=== PATIENT | female | born 1930 | race Hispanic/Latino ===

== ENCOUNTER 2018-12-12 09:31 | Emergency (ER) | payer MEDICARE, SELFPAY ==
[2018-12-12] MEDS ORDERED: HYDROcodone/Acetaminophen 5/325 mg Tablet ONE (10:51)
--- NOTE | 2018-12-12 11:41 | RAD ---
Radiograph left wrist 3 views: DATE: 12/12/2018 HISTORY: 87-year-old female with left wrist pain and edema. COMPARISON: None available FINDINGS: No acute fracture is visualized. However, if there is snuffbox tenderness following trauma that sugge sts an occult scaphoid fracture, then the general recommendation is immobilization and follow-up imaging in 5-10 days. There is soft tissue edema. Chondrocalcinosis of the TFCC. Mild ulna plus. Tamie re DJD with chronic subluxation at first CMC. No dislocation. Mild to moderate DJD at STT complex. No high-grade DJD at rest of joints. IMPRESSION: 1. 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 2. 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 3. Ulnar positive variance. 4. No acute fracture identified.
--- NOTE | 2018-12-12 11:54 | ULT ---
VENOUS DOPPLER ULTRASOUND OF THE LEFT UPPER EXTREMITY: HISTORY: Left upper extremity pain. TECHNIQUE: [place]l scale ultrasound with color flow and spectral Doppler imaging of the deep venous system of the l eft upper extremity was performed. FINDINGS: There is good flow, compression, and spectral waveforms in the deep veins of the left upper extremity including the internal jugular, subclavian, axillary, brachial, radial, ulnar, basilic, and visualiz ed portions of the cephalic vein (hepatic vein not visualized in the upper arm). IMPRESSION: No evidence of deep vein thrombosis in the left upper extremity. POS: TPC
== END 2018-12-12 12:18 | disposition home or self-care (01) ==
LOC: ERS 09:31 → EDBD 09:31 → ERS 12:18
DX: M25.532 Pain in left wrist (principal); J44.9 Chronic obstructive pulmonary disease, unspecified; N18.3 Chronic kidney disease, stage 3 (moderate); E11.22 Type 2 diabetes mellitus with diabetic chronic kidney disease; Z79.82 Long term (current) use of aspirin; Z79.899 Other long term (current) drug therapy

== ENCOUNTER 2019-02-08 12:42 | Outpatient (CLI) | payer MEDICARE ==
--- NOTE | 2019-02-08 13:23 | RAD ---
PA AND LATERAL VIEWS CHEST: 02/08/19 HISTORY: Dyspnea. COMPARISON: There are no previous exams for comparison. FINDINGS/IMPRESSION: The heart size is normal. The aorta is tortuous. There is a mild patchy infiltrate in the left lower lung/lingula. No pneumothoraces or pleural effusions are identified. A follow-up exam after a course of antibiotics would be helpful. POS: OFF
== END 2019-02-08 12:43 | disposition home or self-care (01) ==
LOC: RAD 12:42
PROVIDERS: ATTEND Internal Medicine Critical Care Medicine
DX: R06.00 Dyspnea, unspecified (principal); Q25.46 Tortuous aortic arch; R91.8 Other nonspecific abnormal finding of lung field
CPT/HCPCS: 71046

== ENCOUNTER 2019-02-09 07:09 | Outpatient (CLI) | payer MEDICARE ==
--- NOTE | 2019-02-10 08:08 | PFT ---
PATIENT HISTORY: HEIGHT: 62 IN WEIGHT: 112 SMOKER: NO HOW LONG: NEVER PACKS PER DAY:na PRODUCTIVE COUGH: no LUNG DISEASE: no PHYSICIAN INTERPRETATION PFT data: 02/09/19 FEV1 and FVC are with in normal limits. Total lung capacity within normal limits Gas exchange is mildly reduced. IMPRESSION: No evidence of obstruction or restriction. Ther is a mild gas exchange impairment. Tube Puller: VANESSA Capping Machine Operator: VANESSA VILLA
== END 2019-02-09 07:10 | disposition home or self-care (01) ==
LOC: CP 07:09
PROVIDERS: ATTEND Internal Medicine Critical Care Medicine
DX: J84.112 Idiopathic pulmonary fibrosis (principal)
CPT/HCPCS: 94060; 94727; 94729

== ENCOUNTER 2019-02-16 11:02 | Outpatient (CLI) | payer MEDICARE | END 2019-02-16 11:03 | disposition home or self-care (01) | LOC: DTY/OP 11:02 | PROVIDERS: ATTEND Family Medicine | DX: E11.22 Type 2 diabetes mellitus with diabetic chronic kidney disease (principal); N18.3 Chronic kidney disease, stage 3 (moderate) | CPT/HCPCS: 97802 ==

== ENCOUNTER 2019-03-12 14:48 | Inpatient (IN) | payer MEDICARE ==
--- NOTE | 2019-03-12 15:33 | RAD ---
RADIOGRAPH CHEST 1 VIEW: DATE: 03/12/2019 TIME: 3:24 PM HISTORY: 88-year-old female with pneumonia. Follow-up. COMPARISON: 03/08/2019. FINDINGS: Again noted is the patchy infiltrate at the left lateral lower lung zone with partial silhouetting of the cardiac apex. The previous study was a 2 view study with the lateral view showing that this was in the lingula rather than lower lobe. This infiltrate appears improved in certain areas and slig htly more confluent in other areas. No mural infiltrate identified. No cardiomegaly. No pneumothorax. IMPRESSION: Evidence for pneumonia at the lingula of the left upper lobe, with perhaps minimal improvement since 03/08/2019.
[2019-03-12 15:48] LABS: #Eosinphils 0.3 thou/uL (0.0-0.7); #Lymphocytes 1.3 thou/uL (1.20-3.40); #Monocytes 0.4 thou/uL (0.11-0.59); #Neutrophils 2.6 thou/uL (1.40-6.50); %Basophils 0.7 % (0.0-1.0); %Eosinophils 5.9 % (0.0-10.0); %Lymphocytes 28.1 % (21.0-51.0); %Monocytes 8.3 % (0.0-10.0); Hemoglobin 10.6 g/dL (12.0-16.0); Mean Corpuscular Hemoglobin 29.7 pg (27.0-31.0); Mean Corpuscular Volume 87.3 fL (78.0-98.0); Mean Platelet Volume 6.7 fL (7.4-10.4); Platelet Count 230 thou/uL (130-400); Red Blood Cell (RBC) Count 3.57 mill/uL (4.20-5.40); White Blood Cell (WBC) Count 4.5 thou/uL (4.8-10.8)
[2019-03-12 16:07] LABS: ALT (SGPT) 15 U/L (8-55); AST (SGOT) 28 U/L (5-34); Alkaline Phosphatase 77 U/L (40-110); Anion Gap 13 mmol/L (10-20); BUN (Urea Nitrogen) 36 mg/dL (9.8-20.1); Bilirubin, Total 0.5 mg/dL (0.2-1.2); Calc. Creatinine Clearance 0 mL/min (70-130); Calcium 9.1 mg/dL (7.8-10.44); Carbon Dioxide 23 mmol/L (23-31); Chloride 105 mmol/L (98-107); Estimated GFR-MDRD 36; Globulin 3.7 g/dL (2.4-3.5); Glucose 109 mg/dL (83-110); Potassium 3.7 mmol/L (3.5-5.1); Protein, Total 7.7 g/dL (6.0-8.3); Sodium 137 mmol/L (136-145)
[2019-03-12] MEDS ORDERED: cefTRIAXone\\ROCEPHIN 2 GM VIAL ONE (16:44)
[2019-03-12] MEDS ORDERED: Azithromycin 500 MG VIAL ONE (17:20)
[2019-03-12 17:57] LABS: Bacteria/HPF 1+ HPF (None Seen); Bilirubin Negative (Negative); Blood, Urine Negative (Negative); Clarity Clear (Clear); Glucose, Urine (Dipstick) Normal (Negative); Leukocyte 75 Leu/uL (Negative); Nitrite Negative (Negative); Protein, Urine (Dipstick) Negative (Neg-Trace); RBC/HPF None Seen HPF (0-3); Squamous Epithelial 0-3 HPF (0-3); Urobilinogen Normal mg/dL (Less than 2)
--- NOTE | 2019-03-12 17:57 | PDOC.FPRHP ---
- History of Present Illness Chief Complaint: Weakness History of Present Illness: 88 yo female presents with daughter for evaluation of worsening generalized weakness. Daughter states for the past week pt has been getting more weak needing assistance with ambulation - normally is very independent. Pt lives w/ daughter. 2 days ago dx with pna at [facility] and received 2 shots of abx and no oral abx. Condition has continued to worsen since then prompting further evaluation today. Pt notes mild SOB and cough productive of white foamy sputum, subjective fever, and chills. Pt had pna previously but states it was many many years ago and does not have breathing problems at baseline. Never smoked. Initial eval in ED confirmed pna. Started on azithro and rocephin. Eval in ED for direct transfer to in rehab which family and pt was agreeable to however needed admission overnight prior to transfer. ED Course: IV rocephin and azitho. CXR confirming PNA. - Allergies/Adverse Reactions Allergies Allergy/AdvReac Type Severity Reaction Status Date / Time Penicillins Allergy Verified 03/12/19 19:35 - History PMHx: GERD, osteoporosis, hypothyroidism, HTN, CAD, DM II, CKD3 PSHx: Appy, holley, cervical spine surgery FHx: non contributory Social: Denies any tobacco, alcohol, or drug use - Review of Systems General: reports: fever/chills, weight/appetite/sleep changes (decreased appetite), fatigue Eyes: denies: vision changes ENT: denies: nasal congestion, rhinorrhea Respiratory: reports: cough, shortness of breath. denies: congestion Cardiovascular: denies: chest pain, palpitation Gastrointestinal: denies: nausea, vomiting, diarrhea, constipation Genitourinary: denies: incontinence, dysuria Skin: denies: rashes, lesions Musculoskeletal: denies: pain, tenderness Neurological: reports: weakness (generalized). denies: numbness Psychological: denies: anxiety, depression - Vital signs BP: 102/65, Pulse: 60, Resp: 17, Temp: 98.2 (Oral), Pain: 4, O2 sat: 97 on Room Air - Physical Exam Constitutional: NAD, awake, alert and oriented HEENT: normocephalic and atraumatic, MMM Neck: FROM, no JVD Heart: RRR, normal S1/S2 Lungs: no respiratory distress -Lungs: Crackles left middle and lower lobe Abdomen: soft, non-tender Musculoskeletal: normal structure, normal tone Neurological: no focal deficit, CN II-XII intact Skin: no rash/lesions, good turgor Psychiatric: normal mood and affect, good judgment and insight FMR H&P: Results - Labs Result Diagrams: 03/12/19 15:37 03/12/19 15:37 Lab results: WBC 4.5 thou/uL (4.8-10.8) L 03/12/19 15:37 Hgb 10.6 g/dL (12.0-16.0) L 03/12/19 15:37 Hct 31.1 % (36.0-47.0) L 03/12/19 15:37 MCV 87.3 fL (78.0-98.0) 03/12/19 15:37 Plt Count 230 thou/uL (130-400) 03/12/19 15:37 Neutrophils % 57.0 % (42.0-75.0) 03/12/19 15:37 Sodium 137 mmol/L (136-145) 03/12/19 15:37 Potassium 3.7 mmol/L (3.5-5.1) 03/12/19 15:37 Chloride 105 mmol/L (98-107) 03/12/19 15:37 Carbon Dioxide 23 mmol/L (23-31) 03/12/19 15:37 BUN 36 mg/dL (9.8-20.1) H 03/12/19 15:37 Creatinine 1.37 mg/dL (0.6-1.1) H 03/12/19 15:37 Glucose 109 mg/dL (83-110) 03/12/19 15:37 Lactic Acid 0.9 mmol/L (0.5-2.2) 03/12/19 15:37 Calcium 9.1 mg/dL (7.8-10.44) 03/12/19 15:37 Total Bilirubin 0.5 mg/dL (0.2-1.2) 03/12/19 15:37 AST 28 U/L (5-34) 03/12/19 15:37 ALT 15 U/L (8-55) 03/12/19 15:37 Alkaline Phosphatase 77 U/L (40-110) 03/12/19 15:37 Serum Total Protein 7.7 g/dL (6.0-8.3) 03/12/19 15:37 Albumin 4.0 g/dL (3.4-4.8) 03/12/19 15:37 - Radiology Interpretation Chest x-ray Status: report reviewed by me (left upper lobe PNA) FMR H&P: A/P - Problem List (1) Pneumonia Current Visit: Yes Status: Acute Code(s): J18.9 - PNEUMONIA, UNSPECIFIED ORGANISM (2) Diabetes mellitus, type II Current Visit: Yes Status: Acute (3) HTN (hypertension) Current Visit: Yes Status: Acute Code(s): I10 - ESSENTIAL (PRIMARY) HYPERTENSION (4) HLD (hyperlipidemia) Current Visit: Yes Status: Acute Code(s): E78.5 - HYPERLIPIDEMIA, UNSPECIFIED (5) Hypothyroid Current Visit: Yes Status: Acute Code(s): E03.9 - HYPOTHYROIDISM, UNSPECIFIED (6) CKD (chronic kidney disease) stage 3, GFR 30-59 ml/min Current Visit: Yes Status: Acute Code(s): N18.3 - CHRONIC KIDNEY DISEASE, STAGE 3 (MODERATE) - Plan Community Acquired PNA - Azithro and Rocephin in ED, will continue - Stable vitals on RA - Failed outpt tx 2/2 weakness - Inpt Rehab screen = approved - Continue to monitor resp status, supplemental O2 as needed - Procal trending DM II - Resume home Rx once rec'd - Mild SSI - Hypoglycemia protocol CKD 3 - Continue to monitor HTN, HLD, Hypothyroid - Resume home Rx once rec'd Code: Full Dispo: Admit obs overnight for abx and monitoring w/ likely dc to inpt rehab tomorrow. FMR H&P: Upper Level - Plan Date/Time: 03/12/19 [id number] IRayshawn DO, have evaluated this patient and agree with findings/plan as outlined by internal audit consultant resident. Pertinent changes/additions are listed here. This is an 88 yo female with a pmh of HTN, DM2, CKD 3, hypothyroidism, CAD who presets to the ER with a 6 day history of subjective fever, worsening weakness, cough, and SOB. She state the cough has been productive. She denies sick contacts. She was seen at outside urgent care but was only giving IM antibiotics with no oral outpt abx therapy. Her daughter is with her tonight and states that she is concernd that her grandmother will fall or pass out at home. Physical exam VSS General: NAD Cardio: RRR, no murmurs Respiratory: Crackles heard worse on the left Abdomen: soft, BS+ A/P CAP -Admit to medical obs, rocephin and azithromycin -Flu negative -CURB-65 Score suggests 14% 30 day mortality CKD 3 -No labs to compare to Normocytic anemia -Potentially that of chronic disease, consider outpt work up Deconditioning, likely 2/2 pneumonia -Attempt admission to inpt rehab from ER, however pt's insurance would not allow for this on the weekend, will try in the morning Code: Full Please see internal audit consultant note for management of chronic conditions and for more information. Addendum - Attending - Attending Attestation Date/Time: 03/12/19 1015 I personally evaluated the patient and discussed the management with Dr. Morel I agree with the History, Examination, Assessment and Plan documented above with any addition or exceptions noted below -88 yo female with h/o hypothyroidism, HTN, type 2 DM, GERD, CKD presents with worsening generalized weakness. Daughter states for the past week pt has been getting more weak needing assistance with ambulation - normally is very independent. Pt lives w/ daughter. 2 days ago dx with pna at [facility] and received 2 shots of abx and no oral abx. Condition has continued to worsen since then prompting further evaluation today. Pt notes mild SOB and cough productive of white foamy sputum, subjective fever, and chills. Patient does endorse recent weight loss due to poor appetite. States that it feels like food/solids get stuck in middle of her chest and she has to drink water to try and push it down. States that she has occasional nausea but no vomiting. (+) Heartburn. No problems swallowing liquids. PMH/PSH/Meds/SH reviewed and agree with resident's documentation. Afebilre P61 BP 114/60 RR18 Exam repeated by me and agree with resident's findings. Labs: WBC=4.5, H/H=10.6/31.1, Ocs=275, Ow=763, K=3.7, Sv=445, CO2=23, BUN/Cr=36/1.37, Tzqa=502, lactic acid=0.9, flu-negative. CXR- lingular infiltrate. A/P: 1) Pneumonia - on chart review - infiltrate seen on x-ray in January when she was being evaluated for surgery clearance; possible atypical pathogen versus possible aspiration due to dysphagia. Continue abx for now. 2) Dysphagia- suspect possible esophageal stricture versus gastroparesis- consider barium/gastrograffin swallow or GI consult. 3) Weakness- PT/OT consulted. plan for rehab placement upon discharge, 4) DM- monitor accuchecks and adjust meds as indicated.
[2019-03-12] MEDS ORDERED: Acetaminophen 325 MG TAB PO PRN (19:05)
[2019-03-12] MEDS ORDERED: Ondansetron PF 4 MG/2 ML Vial IVP PRN (19:05)
[2019-03-12] MEDS ORDERED: Ondansetron ODT 4 MG TAB SL PRN (19:05)
[2019-03-12] MEDS ORDERED: Dextrose 5% in Water 1,000 ML IV PRN (19:32)
[2019-03-12] MEDS ORDERED: Dextrose 50% Abboject 50 ML SYRINGE SLOW IVP PRN (19:32)
[2019-03-12] MEDS ORDERED: HumaLOG 300 UNITS/3 ML VIAL SC PRN ×2 (19:32)
[2019-03-12 20:27] VITALS: BMI 21.4
[2019-03-13] MEDS: Melatonin 3 MG TAB PO PRN (01:32)
[2019-03-13 05:53] LABS: #Eosinphils 0.3 thou/uL (0.0-0.7); #Lymphocytes 1.4 thou/uL (1.20-3.40); #Monocytes 0.4 thou/uL (0.11-0.59); #Neutrophils 2.2 thou/uL (1.40-6.50); %Basophils 0.4 % (0.0-1.0); %Eosinophils 6.9 % (0.0-10.0); %Lymphocytes 31.8 % (21.0-51.0); %Monocytes 9.1 % (0.0-10.0); %Neutrophils 51.8 % (42.0-75.0); Hemoglobin 9.1 g/dL (12.0-16.0); Mean Corpuscular HGB CONC 33.2 g/dL (32.0-36.0); Mean Corpuscular Hemoglobin 28.9 pg (27.0-31.0); Mean Corpuscular Volume 87.2 fL (78.0-98.0); Mean Platelet Volume 6.9 fL (7.4-10.4); Platelet Count 215 thou/uL (130-400); Red Blood Cell (RBC) Count 3.13 mill/uL (4.20-5.40); White Blood Cell (WBC) Count 4.3 thou/uL (4.8-10.8)
[2019-03-13 06:28] LABS: Anion Gap 12 mmol/L (10-20); BUN (Urea Nitrogen) 34 mg/dL (9.8-20.1); Calc. Creatinine Clearance 25 mL/min (70-130); Calcium 8.6 mg/dL (7.8-10.44); Carbon Dioxide 23 mmol/L (23-31); Chloride 106 mmol/L (98-107); Estimated GFR-MDRD 38; Glucose 90 mg/dL (83-110); Sodium 137 mmol/L (136-145)
--- NOTE | 2019-03-13 06:33 | PDOC.FM ---
- Subjective Subjective: Patient continues to complain of cough with "foamy" sputum production, says this has been ongoing for about 1 week. Also has some associated chest tightness in center of chest during same time period, worsens when she tries to take a deep breath. Patient was seen by inpatient rehab and screened in ED last night with preliminary acceptance. - Objective Vital Signs & Weight: Vital Signs (12 hours) Temp Pulse Resp BP BP Pulse Ox 03/13/19 04:00 97.9 F 60 16 114/58 L 97 03/13/19 00:00 98.2 F 66 16 122/62 98 03/12/19 19:05 97.7 F 61 18 114/60 114/60 99 Weight Weight 53.212 kg I&O: 03/11/19 03/12/19 03/13/19 06:59 06:59 06:59 Intake Total 610 Balance 610 Result Diagrams: 03/13/19 05:26 03/13/19 05:26 Phys Exam - Physical Examination Constitutional: NAD HEENT: moist MMs, sclera anicteric Neck: no JVD, supple, full ROM Respiratory: no wheezing, no rales, no rhonchi, clear to auscultation bilateral decreased breath sounds in bilateral bases Cardiovascular: RRR, no significant murmur Gastrointestinal: soft, non-tender, no distention, positive bowel sounds Musculoskeletal: no edema, pulses present Neurological: normal sensation, moves all 4 limbs Psychiatric: normal affect, A&O x 3 Skin: no rash, normal turgor Dx/Plan (1) CKD (chronic kidney disease) stage 3, GFR 30-59 ml/min Code(s): N18.3 - CHRONIC KIDNEY DISEASE, STAGE 3 (MODERATE) Status: Acute (2) Diabetes mellitus, type II Status: Acute Qualifiers: Diabetes mellitus wire stitcher machine insulin use: without shelter use Diabetes mellitus complication status: without complication Qualified Code(s): E11.9 - Type 2 diabetes mellitus without complications (3) HTN (hypertension) Code(s): I10 - ESSENTIAL (PRIMARY) HYPERTENSION Status: Acute Qualifiers: Hypertension type: essential hypertension Qualified Code(s): I10 - Essential (primary) hypertension (4) Pneumonia Code(s): J18.9 - PNEUMONIA, UNSPECIFIED ORGANISM Status: Acute Qualifiers: Pneumonia type: due to unspecified organism Laterality: unspecified laterality Lung location: unspecified part of lung Qualified Code(s): J18.9 - Pneumonia, unspecified organism - Plan Plan: Patient is a 88 yo female who presents with congestion is admitted for community -acquired pneumonia: #Community Acquired PNA - CXR on 03/12/19 shows pneumonia at lingula of left lower lobe, minimal change when compared to CXR on 03/08/19 - Azithro and Rocephin started in ED (03/12), will continue - Stable vitals on RA - Failed outpt tx 2/2 weakness - Inpt Rehab screen performed in ED with preliminary approval received 03/12. Will need 1 overnight stay. - Continue to monitor resp status, supplemental O2 as needed - Procal trending - concern for aspiration due to hx of difficulty swallowing, will obtain barium swallow and speech eval today #DM II - Resume home Rx once rec'd - Mild SSI - Hypoglycemia protocol #CKD 3 - Continue to monitor #HTN, HLD, Hypothyroid - Resume home Rx once rec'd Diet: Regular VTE: SCDs Code: FULL Dispo: Stable, Admit to obs on medical unit overnight for antibiotics and monitoring with likely discharge to inpt rehab later today or tomorrow. Addendum - Attending - Attending Attestation Date/Time: 03/13/19 1441 I personally evaluated the patient and discussed the management with Dr. Harvey I agree with the History, Examination, Assessment and Plan documented above with any addition or exceptions noted below. Patient to undergo further dysphagia work up concern with possible repeated aspiration.
[2019-03-13] MEDS: Aspirin 81 mg Enteric Coated Tablet PO SCH (08:44)
[2019-03-13] MEDS: Azithromycin 250 MG TAB PO SCH (08:44)
[2019-03-13] MEDS: Montelukast Sodium 10 mg Tablet PO SCH (08:45)
[2019-03-13] MEDS: Cyanocobalamin (Vitamin B-12) 1,000 MCG TAB PO SCH (08:45)
[2019-03-13] MEDS: Folic Acid 1 MG TAB PO SCH (08:45)
[2019-03-13] MEDS: cefTRIAXone\\ROCEPHIN 2 GM in Sodium Chloride 0.9% 100 ML IVPB SCH (17:16)
[2019-03-14 06:28] LABS: #Eosinphils 0.4 thou/uL (0.0-0.7); #Lymphocytes 1.2 thou/uL (1.20-3.40); #Monocytes 0.5 thou/uL (0.11-0.59); #Neutrophils 2.6 thou/uL (1.40-6.50); %Basophils 0.8 % (0.0-1.0); %Eosinophils 7.6 % (0.0-10.0); %Lymphocytes 25.5 % (21.0-51.0); %Monocytes 9.9 % (0.0-10.0); %Neutrophils 56.2 % (42.0-75.0); Hemoglobin 10.1 g/dL (12.0-16.0); Mean Corpuscular HGB CONC 33.4 g/dL (32.0-36.0); Mean Corpuscular Hemoglobin 29.2 pg (27.0-31.0); Mean Corpuscular Volume 87.3 fL (78.0-98.0); Mean Platelet Volume 7.3 fL (7.4-10.4); Platelet Count 182 thou/uL (130-400); RBC Distribution Width 12.9 % (11.5-14.5); Red Blood Cell (RBC) Count 3.47 mill/uL (4.20-5.40); White Blood Cell (WBC) Count 4.7 thou/uL (4.8-10.8)
--- NOTE | 2019-03-14 06:30 | PDOC.FM ---
- Subjective Subjective: Patient continues to complain of cough with minimal foamy sputum production. Does have some SOB whenever she speaks for extended periods of time or when she is up and walking around. Denies chest pain, palpitations, dizziness, lightheadedness, headache. - Objective Vital Signs & Weight: Vital Signs (12 hours) Temp Pulse Resp BP Pulse Ox 03/14/19 00:27 56 L 18 99 03/13/19 20:41 98 03/13/19 20:00 98.1 F 60 20 161/67 H 98 Weight Admit Weight 53.212 kg Weight 53.212 kg I&O: 03/12/19 03/13/19 03/14/19 06:59 06:59 06:59 Intake Total 610 1680 Balance 610 1680 Result Diagrams: 03/14/19 06:01 03/14/19 06:01 Phys Exam - Physical Examination Constitutional: NAD HEENT: moist MMs, sclera anicteric Neck: no JVD, supple, full ROM Respiratory: no wheezing, no rhonchi, clear to auscultation bilateral decreased air excursion to bilateral bases Cardiovascular: RRR, no significant murmur Gastrointestinal: soft, non-tender, no distention, positive bowel sounds Musculoskeletal: no edema, pulses present Neurological: normal sensation, moves all 4 limbs Psychiatric: normal affect, A&O x 3 Skin: no rash, normal turgor Dx/Plan (1) CKD (chronic kidney disease) stage 3, GFR 30-59 ml/min Code(s): N18.3 - CHRONIC KIDNEY DISEASE, STAGE 3 (MODERATE) Status: Acute (2) Diabetes mellitus, type II Status: Acute Qualifiers: Diabetes mellitus intermodal truck driver insulin use: without intermodal truck driver use Diabetes mellitus complication status: without complication Qualified Code(s): E11.9 - Type 2 diabetes mellitus without complications (3) HTN (hypertension) Code(s): I10 - ESSENTIAL (PRIMARY) HYPERTENSION Status: Acute Qualifiers: Hypertension type: essential hypertension Qualified Code(s): I10 - Essential (primary) hypertension (4) Pneumonia Code(s): J18.9 - PNEUMONIA, UNSPECIFIED ORGANISM Status: Acute Qualifiers: Pneumonia type: due to unspecified organism Laterality: unspecified laterality Lung location: unspecified part of lung Qualified Code(s): J18.9 - Pneumonia, unspecified organism - Plan Plan: Patient is a 88 yo female who presents with congestion is admitted for community -acquired pneumonia: #Community Acquired PNA - CXR on 03/12/19 shows pneumonia at lingula of left lower lobe, minimal change when compared to CXR on 03/08/19 - Azithro and Rocephin started in ED (03/12), will continue - Stable vitals on RA, was noted when working with speech pathologist to have O2 sat drop to 84%, quickly recovered with rest with O2 sat back up to 100% - Failed outpt tx 2/2 weakness - Inpt Rehab screen performed in ED with preliminary approval received 03/12. Will need 1 overnight stay. - Continue to monitor resp status, supplemental O2 as needed - Procal 0.02 - concern for aspiration due to hx of difficulty swallowing, will obtain barium swallow with further speech eval today #DM II - Resume home Rx - Mild SSI - Hypoglycemia protocol #CKD 3 - Continue to monitor #HTN, HLD, Hypothyroid - Resume home Rx Diet: Mechanical soft per KILN DRAWER recs VTE: SCDs Code: FULL Dispo: Stable, Admit to inpatient on medical unit for antibiotics and further workup for aspiration with barium swallow today. Anticipate discharge in 1-3 days to inpatient rehab. Addendum - Attending - Attending Attestation Date/Time: 03/14/19 7538 I personally evaluated the patient and discussed the management with Dr. Harvey I agree with the History, Examination, Assessment and Plan documented above with any addition or exceptions noted below. Barium swallow study this am may need further GI evaluation pending results will modify diet prn.
[2019-03-14 06:49] LABS: Anion Gap 12 mmol/L (10-20); BUN (Urea Nitrogen) 27 mg/dL (9.8-20.1); Calc. Creatinine Clearance 29 mL/min (70-130); Carbon Dioxide 23 mmol/L (23-31); Chloride 106 mmol/L (98-107); Estimated GFR-MDRD 46; Glucose 98 mg/dL (83-110); Potassium 4.1 mmol/L (3.5-5.1); Sodium 137 mmol/L (136-145)
[2019-03-14] MEDS ORDERED: Non-Formulary Item 1 EACH (Ranitidine Hcl [Ranitidine Hcl] 300 MG) PO SCH (09:00)
[2019-03-14] MEDS ORDERED: Non-Formulary Item 1 EACH (Amlodipine Besylate [Amlodipine Besylate] 2.5 MG) PO SCH (09:00)
[2019-03-14] MEDS ORDERED: Losartan/Hydrochlorothiazide 100 mg/25 mg Tablet PO SCH (09:00)
[2019-03-14] MEDS: Senokot S 8.6-50 MG TAB PO SCH (09:48)
[2019-03-14] MEDS: Isosorbide Mononitrate (ER) 30 MG TAB PO SCH (09:48)
[2019-03-14] MEDS: Aspirin 81 mg Enteric Coated Tablet PO SCH (09:48)
[2019-03-14] MEDS: Amlodipine 5 MG TAB PO SCH (09:49)
[2019-03-14] MEDS: Montelukast Sodium 10 mg Tablet PO SCH (09:49)
[2019-03-14] MEDS: Famotidine 20 MG TAB PO SCH (09:49)
[2019-03-14] MEDS: Azithromycin 250 MG TAB PO SCH (09:49)
[2019-03-14] MEDS: Cyanocobalamin (Vitamin B-12) 1,000 MCG TAB PO SCH (09:49)
[2019-03-14] MEDS: Folic Acid 1 MG TAB PO SCH (09:49)
[2019-03-14] MEDS: Losartan/Hydrochlorothiazide 100 mg/25 mg Tablet PO SCH (09:51)
--- NOTE | 2019-03-14 14:05 | RAD ---
Modified barium swallow: 03/14/2019 HISTORY: Evaluate for aspiration, dysphagia, burping FINDINGS: A modified barium swallow is performed in conjunction with a member to the division of spee ch pathology. The patient's imaged in the lateral projection swallowing various consistencies of barium. There is mild residual within the vallecula, particularly with the pudding consistency. No pe netration or aspiration was seen. IMPRESSION: No penetration or aspiration seen. Please see speech pathologist report for full detail a nd feeding recommendations.
[2019-03-14] MEDS: cefTRIAXone\\ROCEPHIN 2 GM in Sodium Chloride 0.9% 100 ML IVPB SCH (17:04)
[2019-03-14] MEDS: Melatonin 3 MG TAB PO PRN (22:40)
--- NOTE | 2019-03-15 05:44 | PDOC.FM ---
- Subjective Subjective: Patient had a barium swallow study completed yesterday. Speech reports she needs to continue with modified diet. Patient states she already avoids eating large bites of foods since having ongoing choking sensation. Voices that she is scared to eat alone for fear she will choke on her food, has had history of having Heimlich maneuver performed on her a few times by family members. This morning patient complains of continued cough. Denies any pain. States that about 1-2 hours after meals she feels nauseous and feels like she has fullness near her epigastric region. Has taken Zantac in the past which relieves these symptoms but has not received it during this stay. - Objective Vital Signs & Weight: Vital Signs (12 hours) Temp Pulse Resp BP Pulse Ox 03/14/19 20:00 97.9 F 61 16 128/57 L 98 Weight Admit Weight 53.212 kg Weight 53.212 kg I&O: 03/13/19 03/14/19 03/15/19 06:59 06:59 06:59 Intake Total 610 1680 1690 Balance 610 1680 1690 Result Diagrams: 03/15/19 06:37 03/15/19 06:37 Phys Exam - Physical Examination Constitutional: NAD HEENT: moist MMs, sclera anicteric Neck: no JVD, supple, full ROM Respiratory: no wheezing, no rales, no rhonchi, clear to auscultation bilateral Cardiovascular: RRR, no significant murmur Gastrointestinal: soft, non-tender, no distention, positive bowel sounds Musculoskeletal: no edema, pulses present Neurological: normal sensation, moves all 4 limbs Psychiatric: normal affect, A&O x 3 Skin: no rash, normal turgor Dx/Plan (1) CKD (chronic kidney disease) stage 3, GFR 30-59 ml/min Code(s): N18.3 - CHRONIC KIDNEY DISEASE, STAGE 3 (MODERATE) Status: Acute (2) Diabetes mellitus, type II Status: Acute Qualifiers: Diabetes mellitus shelter insulin use: without shelter use Diabetes mellitus complication status: without complication Qualified Code(s): E11.9 - Type 2 diabetes mellitus without complications (3) HTN (hypertension) Code(s): I10 - ESSENTIAL (PRIMARY) HYPERTENSION Status: Acute Qualifiers: Hypertension type: essential hypertension Qualified Code(s): I10 - Essential (primary) hypertension (4) Pneumonia Code(s): J18.9 - PNEUMONIA, UNSPECIFIED ORGANISM Status: Acute Qualifiers: Pneumonia type: due to unspecified organism Laterality: unspecified laterality Lung location: unspecified part of lung Qualified Code(s): J18.9 - Pneumonia, unspecified organism - Plan Plan: Patient is a 88 yo female who presents with congestion is admitted for community -acquired pneumonia: #Community Acquired PNA - CXR on 03/12/19 shows pneumonia at lingula of left lower lobe, minimal change when compared to CXR on 03/08/19 - Azithro and Rocephin started in ED (03/12), will continue - Stable vitals on RA, was noted when working with speech pathologist to have O2 sat drop to 84%, quickly recovered with rest with O2 sat back up to 100% - Failed outpt tx 2/2 weakness - Inpt Rehab screen performed in ED with preliminary approval received 03/12. - Continue to monitor resp status, supplemental O2 as needed - Procal 0.02 - concern for aspiration due to hx of difficulty swallowing -Modified barium swallow with further speech eval on 03/14 showed no penetration or aspiration, there was mild oral dysphagia and mild to moderate pharyngeal dysphagia. ROAD SUPERVISOR recommends continued speech therapy and modified diet. See ROAD SUPERVISOR report for additional information. -Rest of barium swallow study of distal esophagus is still pending but verbal report did not see any signs of aspiration, small hiatal hernia present, otherwise normal study - Continue Physical Therapy #DM II - Resume home Rx - Mild SSI - Hypoglycemia protocol #CKD 3 - Continue to monitor #HTN, HLD, Hypothyroid - Resume home Rx Diet: Mechanical soft per ROAD SUPERVISOR recs VTE: SCDs Code: FULL Dispo: Stable, Admit to inpatient on medical unit for antibiotics, transition to PO today. Anticipate discharge in 1-2 days to inpatient rehab. Addendum - Attending - Attending Attestation Date/Time: 03/15/19 0239 I personally evaluated the patient and discussed the management with Dr. Harvey I agree with the History, Examination, Assessment and Plan documented above with any addition or exceptions noted below. Patient stable for transition to rehab for continued swallow therapy and conditioning transition to po antibiotic azithromycin to complete course.
[2019-03-15 07:29] LABS: #Eosinphils 0.4 thou/uL (0.0-0.7); #Lymphocytes 1.3 thou/uL (1.20-3.40); #Monocytes 0.5 thou/uL (0.11-0.59); #Neutrophils 2.1 thou/uL (1.40-6.50); %Basophils 0.2 % (0.0-1.0); %Eosinophils 8.5 % (0.0-10.0); %Lymphocytes 31.6 % (21.0-51.0); %Monocytes 10.9 % (0.0-10.0); %Neutrophils 48.8 % (42.0-75.0); Hemoglobin 9.5 g/dL (12.0-16.0); Mean Corpuscular HGB CONC 33.9 g/dL (32.0-36.0); Mean Corpuscular Hemoglobin 29.6 pg (27.0-31.0); Mean Corpuscular Volume 87.3 fL (78.0-98.0); Mean Platelet Volume 7.3 fL (7.4-10.4); Platelet Count 200 thou/uL (130-400); RBC Distribution Width 12.8 % (11.5-14.5); White Blood Cell (WBC) Count 4.2 thou/uL (4.8-10.8)
[2019-03-15 07:52] LABS: Anion Gap 13 mmol/L (10-20); BUN (Urea Nitrogen) 28 mg/dL (9.8-20.1); Calc. Creatinine Clearance 27 mL/min (70-130); Calcium 8.6 mg/dL (7.8-10.44); Carbon Dioxide 24 mmol/L (23-31); Chloride 104 mmol/L (98-107); Estimated GFR-MDRD 42; Glucose 104 mg/dL (83-110); Potassium 3.6 mmol/L (3.5-5.1); Sodium 137 mmol/L (136-145)
[2019-03-15] MEDS: Aspirin 81 mg Enteric Coated Tablet PO SCH (08:58)
[2019-03-15] MEDS: Isosorbide Mononitrate (ER) 30 MG TAB PO SCH (08:58)
[2019-03-15] MEDS: Montelukast Sodium 10 mg Tablet PO SCH (08:58)
[2019-03-15] MEDS: Amlodipine 5 MG TAB PO SCH (08:58)
[2019-03-15] MEDS: Azithromycin 250 MG TAB PO SCH (08:58)
[2019-03-15] MEDS: Losartan/Hydrochlorothiazide 100 mg/25 mg Tablet PO SCH (08:59)
[2019-03-15] MEDS: Cyanocobalamin (Vitamin B-12) 1,000 MCG TAB PO SCH (08:59)
[2019-03-15] MEDS: Famotidine 20 MG TAB PO SCH (08:59)
[2019-03-15] MEDS: Folic Acid 1 MG TAB PO SCH (08:59)
[2019-03-15] MEDS: Senokot S 8.6-50 MG TAB PO SCH (08:59)
--- NOTE | 2019-03-15 10:18 | RAD ---
BARIUM SWALLOW: 03/14/2019 HISTORY: Dysphagia. Choking. FINDINGS: Advertising Production Manager radiograph chest demonstrates increased linear interstitial density and pulmonary hyperinflatio n. There is atherosclerotic calcification of the aortic arch. There is a focal opacity in the inferol ateral aspect of the left lower lobe/left lung base, suggesting infectious pneumonitis/aspiration. Double contrast barium esophagram performed. Peristalsis appears normal. Esophageal contour is within normal limits. Small sliding type hiatal hernia noted. No gastroesophageal reflux was elicited durin g this examination. The patient ingested a barium tablet which traverses the gastroesophageal junctio n without delay. IMPRESSION: Focal opacity in the inferolateral left lung base suggests infectious pneumonitis/aspiration. Barium esophagram demonstrates a small hiatal hernia with no gastroesophageal reflux, mass or stricture seen . POS: [facility]
--- NOTE | 2019-03-16 05:52 | PDOC.FM ---
- Subjective Subjective: Patient states that she is feeling better this morning. Still has cough, minimal sputum production. Denies chest pain, back pain, difficulty breathing, SOB. Patient's home health services were set up yesterday afternoon/evening for patient to be able to continue speech therapy and physical therapy at home. - Objective Vital Signs & Weight: Vital Signs (12 hours) Temp Pulse Resp BP Pulse Ox 03/15/19 20:00 97.8 F 61 18 123/66 96 03/15/19 19:49 96 Weight Admit Weight 53.212 kg Weight 53.212 kg I&O: 03/14/19 03/15/19 03/16/19 06:59 06:59 06:59 Intake Total 1680 2410 1050 Balance 1680 2410 1050 Result Diagrams: 03/16/19 06:11 03/16/19 06:11 Phys Exam - Physical Examination Constitutional: NAD HEENT: moist MMs, sclera anicteric Neck: no JVD, supple, full ROM Respiratory: no wheezing, no rales, no rhonchi, clear to auscultation bilateral Cardiovascular: RRR, no significant murmur Gastrointestinal: soft, non-tender, no distention, positive bowel sounds Musculoskeletal: no edema, pulses present Neurological: non-focal, normal sensation, moves all 4 limbs Psychiatric: normal affect, A&O x 3 Skin: no rash, normal turgor Dx/Plan (1) CKD (chronic kidney disease) stage 3, GFR 30-59 ml/min Code(s): N18.3 - CHRONIC KIDNEY DISEASE, STAGE 3 (MODERATE) Status: Acute (2) Diabetes mellitus, type II Status: Acute Qualifiers: Diabetes mellitus buttermaker helper insulin use: without correction use Diabetes mellitus complication status: without complication Qualified Code(s): E11.9 - Type 2 diabetes mellitus without complications (3) HTN (hypertension) Code(s): I10 - ESSENTIAL (PRIMARY) HYPERTENSION Status: Acute Qualifiers: Hypertension type: essential hypertension Qualified Code(s): I10 - Essential (primary) hypertension (4) Pneumonia Code(s): J18.9 - PNEUMONIA, UNSPECIFIED ORGANISM Status: Acute Qualifiers: Pneumonia type: due to unspecified organism Laterality: unspecified laterality Lung location: unspecified part of lung Qualified Code(s): J18.9 - Pneumonia, unspecified organism - Plan Plan: Patient is a 88 yo female who presents with congestion is admitted for community -acquired pneumonia: #Community Acquired PNA - CXR on 03/12/19 shows pneumonia at lingula of left lower lobe, minimal change when compared to CXR on 03/08/19 - Azithro and Rocephin started in ED (03/12), Rocephin continued and then stopped on 03/15, Azithro continued with last dose today (03/16) - Stable vitals on RA, was noted when working with speech pathologist to have O2 sat drop to 84%, quickly recovered with rest with O2 sat back up to 100% - Failed outpt tx 2/2 weakness - Inpt Rehab screen performed in ED with preliminary approval received 03/12 but her insurance ultimately denied - Continue to monitor resp status, supplemental O2 as needed - Procal 0.02 - concern for aspiration due to hx of difficulty swallowing -Modified barium swallow with further speech eval on 03/14 showed no penetration or aspiration, there was mild oral dysphagia and mild to moderate pharyngeal dysphagia. SECOND HELPER recommends continued speech therapy and modified diet. See SECOND HELPER report for additional information. -Rest of barium swallow study of distal esophagus is still pending but verbal report did not see any signs of aspiration, small hiatal hernia present, otherwise normal study - Continue Physical Therapy - Consult Case Management to arrange for Home Health services for Physical therapy and Speech therapy--arranged for [facility] to start seeing patient today - will send Tessalon Rx for cough #DM II - Resume home Rx - Mild SSI - Hypoglycemia protocol #CKD 3 - Continue to monitor #HTN, HLD, Hypothyroid - Resume home Rx Diet: Mechanical soft per SECOND HELPER recs VTE: SCDs Code: FULL Dispo: Stable, Admit to inpatient on medical unit for antibiotics. Anticipate discharge today to home with home health services. Will instruct to have close follow up with Dr. Terese Goldsmith at [facility]. Addendum - Attending - Attending Attestation Date/Time: 03/16/19 [id number] I personally evaluated the patient and discussed the management with Dr. Harvey I agree with the History, Examination, Assessment and Plan documented above with any addition or exceptions noted below.
[2019-03-16 06:29] LABS: #Eosinphils 0.4 thou/uL (0.0-0.7); #Lymphocytes 1.4 thou/uL (1.20-3.40); #Monocytes 0.4 thou/uL (0.11-0.59); #Neutrophils 1.8 thou/uL (1.40-6.50); %Basophils 0.9 % (0.0-1.0); %Eosinophils 9.4 % (0.0-10.0); %Lymphocytes 34.9 % (21.0-51.0); %Monocytes 10.3 % (0.0-10.0); %Neutrophils 44.5 % (42.0-75.0); Hemoglobin 9.7 g/dL (12.0-16.0); Mean Corpuscular Hemoglobin 29.6 pg (27.0-31.0); Mean Corpuscular Volume 87.2 fL (78.0-98.0); Mean Platelet Volume 7.2 fL (7.4-10.4); Platelet Count 197 thou/uL (130-400); Red Blood Cell (RBC) Count 3.27 mill/uL (4.20-5.40); White Blood Cell (WBC) Count 4.1 thou/uL (4.8-10.8)
[2019-03-16 06:51] LABS: Anion Gap 12 mmol/L (10-20); BUN (Urea Nitrogen) 32 mg/dL (9.8-20.1); Calc. Creatinine Clearance 28 mL/min (70-130); Calcium 8.7 mg/dL (7.8-10.44); Carbon Dioxide 27 mmol/L (23-31); Chloride 104 mmol/L (98-107); Estimated GFR-MDRD 43; Glucose 110 mg/dL (83-110); Potassium 3.8 mmol/L (3.5-5.1); Sodium 139 mmol/L (136-145)
[2019-03-16] MEDS: Aspirin 81 mg Enteric Coated Tablet PO SCH (09:48)
[2019-03-16] MEDS: Amlodipine 5 MG TAB PO SCH (09:48)
[2019-03-16] MEDS: Folic Acid 1 MG TAB PO SCH (09:48)
[2019-03-16] MEDS: Azithromycin 250 MG TAB PO SCH (09:48)
[2019-03-16] MEDS: Isosorbide Mononitrate (ER) 30 MG TAB PO SCH (09:48)
[2019-03-16] MEDS: Cyanocobalamin (Vitamin B-12) 1,000 MCG TAB PO SCH (09:49)
[2019-03-16] MEDS: Famotidine 20 MG TAB PO SCH (09:49)
[2019-03-16] MEDS: Montelukast Sodium 10 mg Tablet PO SCH (09:49)
[2019-03-16] MEDS: Senokot S 8.6-50 MG TAB PO SCH (09:49)
[2019-03-16] MEDS: Losartan/Hydrochlorothiazide 100 mg/25 mg Tablet PO SCH (09:53)
[2019-03-16 11:21] VITALS: BP 127/62; TEMP 97.8
--- NOTE | 2019-03-17 04:03 | DIS ---
DATE OF ADMISSION: 03/12/2019 DATE OF DISCHARGE: 03/16/2019 RESIDENT: Barby Harvey DO. ADMITTING ATTENDING: Bladimir Irwin MD. DISCHARGE ATTENDING: Helio Vizcarra MD. CONSULTATIONS: 1. Case Management. 2. Occupational Therapy. 3. Physical therapy. 4. Speech therapy. PROCEDURES: 1. Barium swallow x-ray. Results: Small sliding hiatal hernia. Focal opacity in the inferior lateral left lung base suggestive of infectious pneumonitis/ aspiration. No gastroesophageal reflux, mass, or stricture seen. 2. Speech modified barium swallow. Results: Mild dysphagia during oral phase. Moderate dysphagia during pharyngeal phase. No signs of penetration or aspiration seen. PRIMARY DIAGNOSIS: Community-acquired pneumonia. SECONDARY DIAGNOSES: 1. Diabetes mellitus type 2. 2. Chronic kidney disease, stage 3. 3. Hypertension. 4. Hyperlipidemia. 5. Hypothyroid. DISCHARGE MEDICATIONS: 1. Azithromycin 250 mg p.o. daily x1 dose. 2. Tessalon (benzonatate) 100 mg p.o. t.i.d. p.r.n. for cough. 3. Resume rest of home medications. DISCONTINUED MEDICATIONS: 1. Ranitidine 300 mg p.o. daily. 2. Rocephin 2 g IV q.24 hours x3 doses. HISTORY OF PRESENT ILLNESS/HOSPITAL COURSE: The patient is an 88-year-old female who presented with her daughter at the ED for evaluation of worsening generalized weakness. The patient's daughter stated that for the past week, the patient has been getting more weak and needing assistance with ambulation. At baseline, she is normally very independent. Two days ago, the patient was diagnosed with pneumonia at a local urgent care and received 2 shots of antibiotics and was not given a prescription for oral antibiotics. The identity of the antibiotics is currently unknown. Her condition has continued to worsen since then, which prompted the patient's daughter to bring the patient to the ED. The patient additionally notes mild shortness of breath and a cough productive of a white foamy sputum, subjective fever and chills. The patient does not have breathing problems at baseline and has never smoked. Initial evaluation in the emergency department confirmed pneumonia and the patient was started on azithromycin and Rocephin. There was an evaluation in the ED for direct transfer to inpatient rehab, which the patient was agreeable to. However, inpatient rehab required an overnight admission prior to transfer. Later on, the patient's insurance [employer] denied inpatient rehab stay. Upon arrival to the floor, the patient voiced additional history of choking when swallowing solids and liquids. She stated that this had been progressive over the past several months. She also admitted to difficulty swallowing with progressive dysphagia over the same period of time. There was concern for this being aspiration pneumonia and additional concern for GI pathology. A barium swallow study was ordered and the results did not reveal any signs of aspiration or GI pathology. There was a small sliding hiatal hernia noted. It was also determined by speech therapy that the patient has mild oral phase dysphagia and moderate pharyngeal phase dysphagia. This will require further speech therapy, which the patient received daily in the hospital. The patient was continued on Rocephin and azithromycin for her pneumonia. The patient's clinical condition continued to improve throughout her stay and she was showing good progress with both speech therapy and physical therapy. Case management was consulted to set up home health services for the patient with [facility]. On the morning of March 16, 2019, home health services had been confirmed to be in place for continued speech and physical therapies. The patient was deemed clinically stable for discharge back home. She had completed her course of Rocephin and needed one more day of azithromycin with that prescription sent to local pharmacy in addition to Tessalon for her cough. The patient was given ER return precautions and encouraged to have close followup with her PCP. DISPOSITION: Stable. DISCHARGE INSTRUCTIONS: 1. Location: Home with home health services. Home health to provide speech and physical therapies. 2. Diet: Regular. 3. Activity: As tolerated. 4. Follow up with PCP, Dr. Cassi Goldsmith at [facility] in 3 to 5 days. Job ID: [id number] [facility]
== END 2019-03-16 11:41 | disposition home health service (06) | DRG 194 ==
LOC: ERS 14:48 → OBSVTOIN 19:03 → T4-A 19:03
PROVIDERS: ADMIT Student in an Organized Health Care Education/Training Program; ATTEND Student in an Organized Health Care Education/Training Program
DX: J18.9 Pneumonia, unspecified organism (principal); J44.0 Chronic obstructive pulmonary disease with (acute) lower respiratory infection; I12.9 Hypertensive chronic kidney disease with stage 1 through stage 4 chronic kidney disease, or unspecified chronic kidney disease; E11.22 Type 2 diabetes mellitus with diabetic chronic kidney disease; N18.3 Chronic kidney disease, stage 3 (moderate); E78.5 Hyperlipidemia, unspecified; E03.9 Hypothyroidism, unspecified; I25.10 Atherosclerotic heart disease of native coronary artery without angina pectoris; K21.9 Gastro-esophageal reflux disease without esophagitis; R13.10 Dysphagia, unspecified; Z90.49 Acquired absence of other specified parts of digestive tract; F41.9 Anxiety disorder, unspecified; K44.9 Diaphragmatic hernia without obstruction or gangrene
CPT/HCPCS: 36415; 36416; 71045; 74220; 74230; 80048; 80053; 81003; 81015; 83605; 84145; 84443; 85025; 87804; 94640; 96365; 96367; J0456; J0696; J3490; J7620

== ENCOUNTER 2019-03-20 10:22 | Emergency (ER) | payer MEDICARE ==
[2019-03-20 11:28] LABS: #Basophils 0.1 thou/uL (0.0-0.2); #Eosinphils 0.2 thou/uL (0.0-0.7); #Lymphocytes 1.2 thou/uL (1.20-3.40); #Monocytes 0.3 thou/uL (0.11-0.59); %Basophils 1.1 % (0.0-1.0); %Eosinophils 3.9 % (0.0-10.0); %Lymphocytes 25.4 % (21.0-51.0); %Monocytes 5.9 % (0.0-10.0); %Neutrophils 63.6 % (42.0-75.0); Hemoglobin 9.7 g/dL (12.0-16.0); Mean Corpuscular HGB CONC 32.8 g/dL (32.0-36.0); Mean Corpuscular Hemoglobin 28.9 pg (27.0-31.0); Mean Corpuscular Volume 88.4 fL (78.0-98.0); Mean Platelet Volume 7.1 fL (7.4-10.4); Platelet Count 162 thou/uL (130-400); RBC Distribution Width 13.3 % (11.5-14.5); Red Blood Cell (RBC) Count 3.36 mill/uL (4.20-5.40); White Blood Cell (WBC) Count 4.7 thou/uL (4.8-10.8)
[2019-03-20 11:49] LABS: ALT (SGPT) 18 U/L (8-55); AST (SGOT) 27 U/L (5-34); Albumin 3.9 g/dL (3.4-4.8); Alkaline Phosphatase 68 U/L (40-110); Anion Gap 12 mmol/L (10-20); BUN (Urea Nitrogen) 25 mg/dL (9.8-20.1); Bilirubin, Total 0.5 mg/dL (0.2-1.2); Calc. Creatinine Clearance 0 mL/min (70-130); Calcium 8.9 mg/dL (7.8-10.44); Carbon Dioxide 26 mmol/L (23-31); Chloride 103 mmol/L (98-107); Estimated GFR-MDRD 46; Globulin 3.3 g/dL (2.4-3.5); Glucose 133 mg/dL (83-110); Potassium 3.9 mmol/L (3.5-5.1); Protein, Total 7.2 g/dL (6.0-8.3); Sodium 137 mmol/L (136-145)
--- NOTE | 2019-03-20 11:53 | RAD ---
EXAM: Chest PA and lateral: HISTORY: Cough. COMPARISON: 03/12/2019 FINDINGS: Heart: Normal cardiac silhouette Aorta: Atherosclerosis of the aortic knob Pulmonary vessels: Normal Costophrenic angles: Costophrenic angles are clear. Lungs: Hyperinflation with chronic changes. Persistent opacification in the lingula. Pneumothorax: No pneumothorax Osseous structures: No osseous abnormalities IMPRESSION: Persistent opacification in the lingula, worrisome for pneumonia. Continued surveillance is recommend ed.
== END 2019-03-20 13:25 | disposition home or self-care (01) ==
LOC: ERS 10:22
DX: J18.9 Pneumonia, unspecified organism (principal); E11.22 Type 2 diabetes mellitus with diabetic chronic kidney disease; J44.9 Chronic obstructive pulmonary disease, unspecified; N18.6 End stage renal disease; M19.90 Unspecified osteoarthritis, unspecified site; Z99.2 Dependence on renal dialysis; Z79.82 Long term (current) use of aspirin; Z79.84 Long term (current) use of oral hypoglycemic drugs; Z79.899 Other long term (current) drug therapy
CPT/HCPCS: 36415; 71046; 80053; 83880; 84484; 85025; 94640; J7620

== ENCOUNTER 2019-03-26 15:38 | Outpatient (CLI) | payer MEDICARE ==
--- NOTE | 2019-03-26 15:52 | RAD ---
PA AND LATERAL CHEST: COMPARISON: 03/20/2019 study. HISTORY: Pneumonia and cough. FINDINGS: Heart size within normal limits. There are atherosclerotic changes and chronic lung change noted. P arenchymal opacity in the lingula is stable. IMPRESSION: Persistent lingular opacity. Overall stable chest. POS: [facility]
== END 2019-03-26 15:39 | disposition home or self-care (01) ==
LOC: SCSRAD 15:38
PROVIDERS: ATTEND Nurse Practitioner Family
DX: R53.81 Other malaise (principal); R91.8 Other nonspecific abnormal finding of lung field
CPT/HCPCS: 71046; 87086

== ENCOUNTER 2019-03-31 14:22 | Emergency (ER) | payer MEDICARE ==
--- NOTE | 2019-03-31 15:04 | RAD ---
ONE VIEW CHEST: TWO VIEWS ABDOMEN: HISTORY: Lack of bowel movement x8 days. Pain. Nausea. COMPARISON: Two view chest 03/26/2019. FINDINGS: ONE VIEW CHEST: Atherosclerosis of the aorta. Normal cardiac silhouette. Lungs are hyperinflated, with chronic change s. No pleural effusion or pneumothorax TWO VIEWS ABDOMEN: Nonspecific bowel gas pattern. No suspicious densities in the abdomen or pelvis. No differential air- fluid levels. No pneumoperitoneum. IMPRESSION: 1. Atherosclerosis. 2. Hyperinflation with chronic changes of the lung parenchyma. No acute cardiopulmonary process. 2. Nonspecific bowel gas pattern. Transcribed Date/Time: 03/31/2019 3:13 PM
[2019-03-31 16:02] LABS: #Eosinphils 0.2 thou/uL (0.0-0.7); #Lymphocytes 1.3 thou/uL (1.20-3.40); #Monocytes 0.3 thou/uL (0.11-0.59); #Neutrophils 2.1 thou/uL (1.40-6.50); %Basophils 0.2 % (0.0-1.0); %Eosinophils 4.3 % (0.0-10.0); %Lymphocytes 33.8 % (21.0-51.0); %Monocytes 7.3 % (0.0-10.0); %Neutrophils 54.4 % (42.0-75.0); Hemoglobin 9.8 g/dL (12.0-16.0); Mean Corpuscular Hemoglobin 29.4 pg (27.0-31.0); Mean Corpuscular Volume 89.3 fL (78.0-98.0); Mean Platelet Volume 7.9 fL (7.4-10.4); Platelet Count 148 thou/uL (130-400); RBC Distribution Width 14.1 % (11.5-14.5); Red Blood Cell (RBC) Count 3.32 mill/uL (4.20-5.40); White Blood Cell (WBC) Count 3.8 thou/uL (4.8-10.8)
[2019-03-31 16:27] LABS: ALT (SGPT) 17 U/L (8-55); AST (SGOT) 30 U/L (5-34); Albumin 4.1 g/dL (3.4-4.8); Alkaline Phosphatase 65 U/L (40-110); Anion Gap 14 mmol/L (10-20); BUN (Urea Nitrogen) 28 mg/dL (9.8-20.1); Bilirubin, Total 0.6 mg/dL (0.2-1.2); Calc. Creatinine Clearance 0 mL/min (70-130); Carbon Dioxide 22 mmol/L (23-31); Chloride 98 mmol/L (98-107); Estimated GFR-MDRD 24; Globulin 3.3 g/dL (2.4-3.5); Glucose 86 mg/dL (83-110); Lipase 28 U/L (8-78); Potassium 4.7 mmol/L (3.5-5.1); Protein, Total 7.4 g/dL (6.0-8.3); Sodium 129 mmol/L (136-145)
[2019-03-31] MEDS ORDERED: Iopamidol 370 76% 50 ML VIAL FS ONE (16:31)
[2019-03-31 16:36] LABS: Bacteria/HPF None Seen HPF (None Seen); Bilirubin Negative (Negative); Blood, Urine Negative (Negative); Clarity Clear (Clear); Glucose, Urine (Dipstick) Normal (Negative); Leukocyte 25 Leu/uL (Negative); Nitrite Negative (Negative); Protein, Urine (Dipstick) Negative (Neg-Trace); RBC/HPF 0-3 HPF (0-3); Squamous Epithelial 0-3 HPF (0-3); Urobilinogen Normal mg/dL (Less than 2)
[2019-03-31] MEDS ORDERED: Ondansetron PF 4 MG/2 ML Vial ONE (17:23)
[2019-03-31] MEDS ORDERED: Lidocaine Viscous Sol 2% 15 ml UD Cup ONE (17:48)
[2019-03-31] MEDS ORDERED: Mag-Al 1200 mg/1200 mg/30 ML UDCUP ONE (17:48)
--- NOTE | 2019-03-31 19:48 | CT ---
CT Abdomen Pelvis WO Con 03/31/2019 5:33 PM HISTORY: Generalized weakness, nausea, and abdominal pain. COMPARISON: None. Technique: Multiple contiguous axial CT images are obtained through the abdomen and pelvis without IV contrast. Coronal reformats are provided. FINDINGS: This examination is limited for the evaluation of solid organs and vascular structures due to the lac k of intravenous contrast. Lower Chest: Patchy densities are seen in the region of the lingula and left lower lobe worrisome for multifocal pneumonia. There is atelectasis at the right lung base. Abdomen: Liver: There is evidence of pneumobilia and mild prominence of the bile ducts. A tiny calcified granu meliza is present. Gallbladder: Not visualized and likely surgically absent. Pancreas: Grossly normal nonenhanced CT appearance. Spleen: Grossly normal nonenhanced CT appearance. Adrenals: Grossly normal nonenhanced CT appearance. Kidneys: There is mild thickening of the meneses of the right renal pelvis and proximal right ureter. T his may be related to prior infectious or inflammatory process. There is mild caliectasis present bilaterally. No renal calculus is identified. Ureters: No ureteral calculus is present.. Pelvis: Urinary bladder: within normal limits. Reproductive Organs: No pelvic masses. Lymph Nodes: No enlarged lymph nodes. Bowel: Small hiatal hernia is present. There is prominent thickening in the region of the pylorus of the stomach. This could potentially rep resent a transient finding and related to incomplete distention and peristalsis of the stomach. However, the area of thickening does appear slightly irregular, and ulcer disease or neoplastic proce ss could not be entirely excluded. Follow-up evaluation with endoscopy or upper GI is recommended. Direct visualization is suggested. Loops of small bowel are normal in caliber. Small amount of retained fecal material seen throughout t he colon. Appendix: Not definitely visualized, no secondary signs are seen to suggest appendicitis. Peritoneum: No free fluid, free air, or fluid collection. Retroperitoneum: within normal limits. Vessels: Dense vascular calcifications are seen involving the abdominal aorta and iliac arteries as w ell as the branch vessels of the abdominal aorta. Abdominal Wall: within normal limits. Bones: Degenerative changes are seen in the spine. There is osteopenia. IMPRESSION: 1. Patchy parenchymal densities in the lingula and left lower lobe which may be related to multifocal pneumonia. Follow-up to resolution is recommended. 2. Suggested irregular thickening involving the pylorus of the stomach. While this could be related t o a transient finding and associated incomplete distention, thickening related to ulcer disease or neoplastic process cannot be excluded. Follow-up upper GI or endoscopy is recommended for further jahaira luation. 3. Pneumobilia. 4. Suggestion of slight thickening of the meneses of the right renal pelvis and proximal right ureter. This could be related to prior infectious or inflammatory process. 5. Small hiatal hernia. 6. Dense vascular calcifications.
== END 2019-03-31 20:30 | disposition home or self-care (01) ==
LOC: ERS 14:22
DX: R10.13 Epigastric pain (principal); J44.9 Chronic obstructive pulmonary disease, unspecified; M19.90 Unspecified osteoarthritis, unspecified site; I12.9 Hypertensive chronic kidney disease with stage 1 through stage 4 chronic kidney disease, or unspecified chronic kidney disease; N18.3 Chronic kidney disease, stage 3 (moderate); E11.22 Type 2 diabetes mellitus with diabetic chronic kidney disease; F41.9 Anxiety disorder, unspecified; Z79.82 Long term (current) use of aspirin; Z79.899 Other long term (current) drug therapy
CPT/HCPCS: 36415; 74022; 74176; 80053; 81003; 81015; 83690; 85025; 96361; 96374; J2405; Q9967

== ENCOUNTER 2019-05-12 11:33 | Outpatient (CLI) | payer MEDICARE ==
--- NOTE | 2019-05-12 11:57 | RAD ---
XR Chest Pa Lat STANDARD History: Fever unspecified Comparison: Radiograph March 26, 2019 Findings: Similar appearance of the left lower lobe patchy infiltrate. No pneumothorax. No significan t effusion. No acute osseous abnormality. Impression: Similar appearance left lower lobe infiltrate. Although radiographic findings can fall be hind clinical improvement, bronchoscopy may be beneficial in this patient to evaluate for a atypical infectious process.
== END 2019-05-12 11:34 | disposition home or self-care (01) ==
LOC: BICRAD 11:33
PROVIDERS: ATTEND Nurse Practitioner Family
DX: R50.9 Fever, unspecified (principal)
CPT/HCPCS: 71046

== ENCOUNTER 2019-05-12 15:46 | Inpatient (IN) | payer MEDICARE ==
[~2019-05-12 15:46] MED LIST: Iopamidol-370 76% 500 ML 1 ML ONE
[2019-05-12 17:00] LABS: #Eosinphils 0.1 thou/uL (0.0-0.7); #Lymphocytes 0.8 thou/uL (1.20-3.40); #Monocytes 0.6 thou/uL (0.11-0.59); #Neutrophils 8.8 thou/uL (1.40-6.50); %Basophils 0.1 % (0.0-1.0); %Eosinophils 1.1 % (0.0-10.0); %Lymphocytes 7.5 % (21.0-51.0); %Monocytes 6.1 % (0.0-10.0); %Neutrophils 85.4 % (42.0-75.0); Hemoglobin 11.1 g/dL (12.0-16.0); Mean Corpuscular HGB CONC 32.7 g/dL (32.0-36.0); Mean Corpuscular Hemoglobin 29.3 pg (27.0-31.0); Mean Corpuscular Volume 89.9 fL (78.0-98.0); Mean Platelet Volume 7.8 fL (7.4-10.4); Platelet Count 128 thou/uL (130-400); RBC Distribution Width 14.3 % (11.5-14.5); Red Blood Cell (RBC) Count 3.79 mill/uL (4.20-5.40); White Blood Cell (WBC) Count 10.3 thou/uL (4.8-10.8)
[2019-05-12] MEDS ORDERED: Sodium Chloride 0.9% 100 ML ONE (17:00)
[2019-05-12] MEDS ORDERED: Cefepime 2 GM VIAL ONE (17:00)
[2019-05-12 17:21] LABS: ALT (SGPT) 17 U/L (8-55); AST (SGOT) 24 U/L (5-34); Albumin 4.1 g/dL (3.4-4.8); Alkaline Phosphatase 58 U/L (40-110); Anion Gap 12 mmol/L (10-20); BUN (Urea Nitrogen) 26 mg/dL (9.8-20.1); Bilirubin, Total 1.1 mg/dL (0.2-1.2); Calc. Creatinine Clearance 0 mL/min (70-130); Calcium 8.8 mg/dL (7.8-10.44); Carbon Dioxide 24 mmol/L (23-31); Chloride 102 mmol/L (98-107); Estimated GFR-MDRD 37; Globulin 3.4 g/dL (2.4-3.5); Glucose 86 mg/dL (83-110); Potassium 3.5 mmol/L (3.5-5.1); Protein, Total 7.5 g/dL (6.0-8.3); Sodium 134 mmol/L (136-145)
--- NOTE | 2019-05-12 17:39 | PDOC.FPRHP ---
- History of Present Illness Chief Complaint: Cough History of Present Illness: Mrs. Harrison is an 88 y/o female with a PMH significant for COPD, CAD, HTN, HLD and CKD-3 and a recent history of CAP treated with Azithromycin who presents to the ED from an urgent care clinic for evaluation of a cough. The patient states that she has had a persistent cough for the past 1.5 months, associated with white sputum production, subjective fevers and chills, body aches, and pleuritic chest pain. However, her cough and chest pain became acutely worse, which prompted her presentation to the urgent care clinic. A CXR was performed that showed a relatively stable LLL infiltrate, consistent with her previous hospitalization for CAP and subsequent follow-ups. She was subsequently told to present to [facility] for in -patient treatment. Her son-in-law was present at the time of evaluation and assisted with portions of the HPI. ED Course: While in the ED, she was administered Cefepime and Levaquin. An additional CTA Chest was performed that demonstrated bilateral infiltrates consistent with presumptive diagnosis of pneumonia, without evidence of PE. - Allergies/Adverse Reactions Allergies Allergy/AdvReac Type Severity Reaction Status Date / Time Penicillins Allergy Verified 03/12/19 19:35 - Home Medications Medication Instructions Recorded Confirmed Type Amlodipine Besylate [amLODIPine 2.5 mg PO DAILY 03/12/19 05/12/19 History Besylate] Aspirin [Aspirin EC] 81 mg PO DAILY 03/12/19 05/12/19 History Cholecalciferol (Vitamin D3) 10,000 unit PO Q7DAYS 03/12/19 05/12/19 History [Vitamin D3] Cyanocobalamin (Vitamin B-12) 1,000 mcg PO DAILY 03/12/19 05/12/19 History [Vitamin B-12] Folic Acid 1 mg PO DAILY 03/12/19 05/12/19 History Isosorbide Mononitrate [Isosorbide 30 mg PO DAILY 03/12/19 05/12/19 History Mononitrate ER] Losartan/Hydrochlorothiazide 1 each PO DAILY 03/12/19 05/12/19 History [Losartan-Hctz 100-25 mg Tab] Metoprolol Succinate 25 mg PO DAILY 03/12/19 05/12/19 History Montelukast Sodium 10 mg PO DAILY 03/12/19 05/12/19 History Sennosides/Docusate Sodium 2 tab PO DAILY 03/12/19 05/12/19 History [Docusate Sodium-Sennosides Tab] glipiZIDE [glipiZIDE ER] 2.5 mg PO DAILY 03/12/19 05/12/19 History Benzonatate [Tessalon] 100 mg PO TID PRN #30 cap 03/16/19 05/12/19 Rx - History PMHx: COPD, HTN, HLD, DM2, Hypothyroidism, recent CAP PSHx: Appendectomy, Cholecystectomy, Unknown C-Spine Surgery ("Plate in my Head ") FHx: +HTN Social: Denies x3. Used to work in a heavy-smoke environment. Code: DNAR - Review of Systems General: reports: fever/chills, weight/appetite/sleep changes, fatigue Eyes: denies: vision changes ENT: denies: nasal congestion, rhinorrhea Respiratory: reports: cough, congestion, shortness of breath Cardiovascular: reports: chest pain (Worse on the left side, worse with breathing, without radiation) Gastrointestinal: denies: nausea, vomiting, diarrhea, abdominal pain, GI bleeding Genitourinary: denies: dysuria, discharge Skin: denies: rashes, lesions Musculoskeletal: reports: pain (Patient recently fell on knees, denies head trauma) Neurological: reports: weakness. denies: syncope Psychological: reports: anxiety - Vital signs BP: [141/58] HR: [88] RR: [22] Tmax: [100.6] Pox: [96]% on [Room] Wt: [59 kg] - Physical Exam Constitutional: NAD, awake, alert and oriented, well developed HEENT: normocephalic and atraumatic, PERRLA, conjunctiva clear, no scleral icterus, grossly normal vision, grossly normal hearing, normal nasal mucosa, MMM , oropharynx clear Neck: supple, FROM, trachea midline, no LAD, no JVD Chest: other (Minimal left-sided TTP) Heart: normal S1/S2, no murmurs/rubs/gallops, pulses present, no edema Lungs: no respiratory distress (Mild crackles over left lung cortés. Moderate air movement. Scant expiratory wheezes.), no retractions Abdomen: soft, non-tender, bowel sounds present, no masses/distention Musculoskeletal: normal structure, ROM grossly normal Neurological: no focal deficit Skin: no rash/lesions, no jaundice Heme/Lymphatic: no unusual bruising or bleeding, no purpura, no petechia Psychiatric: normal mood and affect, good judgment and insight, intact recent and remote memory FMR H&P: Results - Labs Result Diagrams: 05/13/19 05:19 05/13/19 05:19 Lab results: WBC 10.3 thou/uL (4.8-10.8) 05/12/19 16:50 Hgb 11.1 g/dL (12.0-16.0) L 05/12/19 16:50 Hct 34.1 % (36.0-47.0) L 05/12/19 16:50 MCV 89.9 fL (78.0-98.0) 05/12/19 16:50 Plt Count 128 thou/uL (130-400) L 05/12/19 16:50 Neutrophils % 85.4 % (42.0-75.0) H 05/12/19 16:50 Sodium 134 mmol/L (136-145) L 05/12/19 16:50 Potassium 3.5 mmol/L (3.5-5.1) 05/12/19 16:50 Chloride 102 mmol/L (98-107) 05/12/19 16:50 Carbon Dioxide 24 mmol/L (23-31) 05/12/19 16:50 BUN 26 mg/dL (9.8-20.1) H 05/12/19 16:50 Creatinine 1.34 mg/dL (0.6-1.1) H 05/12/19 16:50 Glucose 86 mg/dL (83-110) 05/12/19 16:50 Lactic Acid 1.4 mmol/L (0.5-2.2) 05/12/19 16:50 Calcium 8.8 mg/dL (7.8-10.44) 05/12/19 16:50 Total Bilirubin 1.1 mg/dL (0.2-1.2) 05/12/19 16:50 AST 24 U/L (5-34) 05/12/19 16:50 ALT 17 U/L (8-55) 05/12/19 16:50 Alkaline Phosphatase 58 U/L (40-110) 05/12/19 16:50 Serum Total Protein 7.5 g/dL (6.0-8.3) 05/12/19 16:50 Albumin 4.1 g/dL (3.4-4.8) 05/12/19 16:50 FMR H&P: A/P - Problem List (1) Hospital-acquired pneumonia Current Visit: Yes Status: Acute Code(s): J18.9 - PNEUMONIA, UNSPECIFIED ORGANISM; Y95 - NOSOCOMIAL CONDITION - Plan Patient is an 88 y/o female admitted to the Medical Floor for cough. 1. Hospital Acquired Pneumonia -Patient was admitted to the hospital for IV antibiotics within past 90 days with failed outpatient therapy -Continuation of symptoms and lack of improvement of lung findings on imaging is concerning -TMax(100.6) - all other vital signs stable -Physical exam remarkable for crackles over left lung cortés and pleuritic chest pain -CT Chest: Bilateral infiltrates w/o evidence of PE -EKG: NSR w/ PAC -s/p Levaquin and Cefepime x1 in the ED - will continue w/ renal adjustment -LR @ 100 ml/hr 2. CAD -Continue home medication regimen 3. DM2 -Appears well-controlled at this time -CC Diet, will supplement as needed -Continue home medication regimen 4. HTN -Continue home medication regimen 5. HLD -Continue home medication regimen 6. COPD -DuoNebs 3 ml Q6H PRN -Continue home medication regimen -Will monitor respiratory status 7. Constipation, Chronic -Dulcolax 10 mg PO daily PRN Code: DNAR Diet: CC IVF: LR @ 100 ml/hr Activity: Ad emily VTE PPx: Lovenox w/ SCDs Dispo: Patient is admitted to the Medical Floor for HAP. Continue antibiotic regimen as per above, as well as fluid resuscitation and management of chronic medical conditions. Expected LOS > 48H. FMR H&P: Upper Level - Pertinent history 88 y/o F PMHx DM2, HTN, emphysema, CKD3, CAD presents to ED from urgent care for cough. The patient was admitted in February for LLL pneumonia. She was treated at that time with rocephin and azithromycin. She reports she saw Dr. Styles after that and was given another abx and then her fevers, chills, cough have persisted and she has felt worse the past 3 days so she came to be evaluated. - Pertinent findings Pulse: 88, Resp: 20, Tmax: 100.7 (Oral), O2 sat: 96 on (Room Air) PE: Gen - alert, oriented, NAD CV - RRR, no murmurs Lungs - L lower lobe with rhonchi, no wheezes Abd - soft NTTP Labs: WBC 10.3, Platelet 128, Na 134, BUN 26, Cr 1.34, GFR 37, Lactic acid 1.4 CTA: No evidence of PE, LLL pneumonia - Plan Date/Time: 05/12/191738 I, Crys Webb MD, PGY-3, have evaluated this patient and agree with findings/ plan as outlined by consulting intern resident. Pertinent changes/additions are listed here. LLL Pneumonia CXR over the past month and a half have all shown LLL PNA. CTA today showed no evidence of PE, but LLL pneumonia. s/p levaquin and cefepime in ER. -Pt has been treated twice now and has persistent symptoms, will continue levaquin and cefepime renally dosed -IVF HTN -Cont home amlodipine, metoprolol, losartan/HCTZ DM2 -Accuchecks ACHS -CC diet -Cont glipizide CAD -Cont aspirin, metoprolol, isosorbide mononitrate CKD3 -Stable, monitor and avoid nephrotoxic agents Dispo: Admit to Medical LOS: Likely 2 days Addendum - Attending - Attending Attestation Date/Time: 05/12/192033 I personally evaluated the patient and discussed the management with Dr. Zamora. I agree with the History, Examination, Assessment and Plan documented above with any addition or exceptions noted below. The patient presents with cough fever and shortness of breath. She has been treated for pneumonia with rocephin twice in the past 2 months. She endorses fatigue. Will treat with levaquin and cefepime.
--- NOTE | 2019-05-12 18:20 | CT ---
CT ANGIO OF CHEST PERFORMED WITH INTRAVENOUS CONTRAST ENHANCEMENT WITH 3D RECONSTRUCTIONS: 05/12/19 HISTORY: Shortness of breath and cough. There is some minimal pneumonitis type changes in both upper lobes. Also some changes which are sligh tly more prominent in the middle lobe and lingula and more confluent pneumonic process developing in the left lower lobe. Also some patchy parenchymal changes in the right lower lobe. Small mediastinal and hilar lymph nodes do not appear significantly enlarged. Thoracic aorta is normal in caliber. There is good pulmonary artery opacification and no CT evidence for pulmonary embolus. Pneumobilia is noted. Presumably this is on the basis of a cholecystectomy. A hiatal hernia is seen. IMPRESSION: 1. Bilateral early infiltrative lung changes. 2. No CT evidence for pulmonary embolus. POS: [facility]
[2019-05-12 20:04] LABS: Bacteria/HPF None Seen HPF (None Seen); Bilirubin Negative (Negative); Blood, Urine Trace (Negative); Clarity Clear (Clear); Glucose, Urine (Dipstick) Normal (Negative); Leukocyte Negative Leu/uL (Negative); Nitrite Negative (Negative); Protein, Urine (Dipstick) Negative (Neg-Trace); RBC/HPF 0-3 HPF (0-3); Squamous Epithelial 0-3 HPF (0-3); Urobilinogen Normal mg/dL (Less than 2); WBC/HPF 0-3 HPF (0-3)
[2019-05-12] MEDS ORDERED: Ondansetron ODT 4 MG TAB PO PRN (21:04)
[2019-05-12] MEDS ORDERED: Bisacodyl 10 MG SUPP PR PRN (21:04)
[2019-05-12 21:12] VITALS: BMI 23.8
[2019-05-12] MEDS: Famotidine 20 MG TAB PO SCH (21:16)
[2019-05-13] MEDS: Acetaminophen 325 MG TAB PO PRN ×2 (00:17→19:41)
[2019-05-13] MEDS: Lactated Ringer's 1,000 ML IV SCH ×3 (00:17→18:14)
[2019-05-13] MEDS ORDERED: Bisacodyl 5 MG TAB PO PRN (01:13)
[2019-05-13] MEDS ORDERED: Dextrose 50% Abboject 50 ML SYRINGE SLOW IVP PRN (02:00)
[2019-05-13] MEDS ORDERED: Dextrose 5% in Water 1,000 ML IV PRN (02:00)
[2019-05-13 05:50] LABS: #Lymphocytes 0.9 thou/uL (1.20-3.40); #Monocytes 0.9 thou/uL (0.11-0.59); #Neutrophils 9.3 thou/uL (1.40-6.50); %Basophils 0.1 % (0.0-1.0); %Eosinophils 0.2 % (0.0-10.0); %Lymphocytes 8.1 % (21.0-51.0); %Monocytes 8.1 % (0.0-10.0); %Neutrophils 83.6 % (42.0-75.0); Hemoglobin 9.9 g/dL (12.0-16.0); Mean Corpuscular Hemoglobin 30.3 pg (27.0-31.0); Mean Corpuscular Volume 88.9 fL (78.0-98.0); Mean Platelet Volume 7.7 fL (7.4-10.4); Platelet Count 109 thou/uL (130-400); RBC Distribution Width 14.2 % (11.5-14.5); Red Blood Cell (RBC) Count 3.28 mill/uL (4.20-5.40); White Blood Cell (WBC) Count 11.1 thou/uL (4.8-10.8)
[2019-05-13 06:07] LABS: Anion Gap 10 mmol/L (10-20); BUN (Urea Nitrogen) 23 mg/dL (9.8-20.1); Calc. Creatinine Clearance 29 mL/min (70-130); Calcium 8.1 mg/dL (7.8-10.44); Carbon Dioxide 22 mmol/L (23-31); Chloride 104 mmol/L (98-107); Estimated GFR-MDRD 41; Glucose 93 mg/dL (83-110); Potassium 3.3 mmol/L (3.5-5.1); Sodium 133 mmol/L (136-145)
--- NOTE | 2019-05-13 06:28 | PDOC.FM ---
- Subjective Subjective: Patient states she feels okay this morning. She did have a fever overnight at 0030 up to 101.0 F. Still complaining of cough with white foamy sputum production. Also says she has some brief sharp pains that occur throughout her body which have been occurring for past 2-3 days. Denies any chest pain, SOB, abdominal pain, nausea, headache. - Objective Vital Signs & Weight: Vital Signs (12 hours) Temp Pulse Resp BP Pulse Ox 05/13/19 04:00 98.5 F 73 20 103/62 05/13/19 00:30 101.0 F H 79 20 111/63 96 05/12/19 21:20 92 L 05/12/19 21:10 99.9 F H 98 18 156/66 H 92 L Weight Weight 59.012 kg Result Diagrams: 05/13/19 05:19 05/13/19 05:19 Phys Exam - Physical Examination Constitutional: NAD HEENT: moist MMs Neck: supple, full ROM Respiratory: no wheezing, no rales scattered rhonchi in bilateral lower lobes Cardiovascular: RRR, no significant murmur Gastrointestinal: soft, non-tender, no distention, positive bowel sounds Musculoskeletal: no edema, pulses present Neurological: normal sensation, moves all 4 limbs Psychiatric: normal affect, A&O x 3 Skin: no rash, normal turgor Dx/Plan (1) Hospital-acquired pneumonia Code(s): J18.9 - PNEUMONIA, UNSPECIFIED ORGANISM; Y95 - NOSOCOMIAL CONDITION Status: Acute (2) CKD (chronic kidney disease) stage 3, GFR 30-59 ml/min Code(s): N18.3 - CHRONIC KIDNEY DISEASE, STAGE 3 (MODERATE) Status: Acute (3) Diabetes mellitus, type II Status: Acute Qualifiers: Diabetes mellitus terminal computer operator insulin use: without terminal computer operator use Diabetes mellitus complication status: without complication Qualified Code(s): E11.9 - Type 2 diabetes mellitus without complications (4) HLD (hyperlipidemia) Code(s): E78.5 - HYPERLIPIDEMIA, UNSPECIFIED Status: Acute Qualifiers: Hyperlipidemia type: unspecified Qualified Code(s): E78.5 - Hyperlipidemia , unspecified (5) HTN (hypertension) Code(s): I10 - ESSENTIAL (PRIMARY) HYPERTENSION Status: Acute Qualifiers: Hypertension type: essential hypertension Qualified Code(s): I10 - Essential (primary) hypertension - Plan Plan: Patient is an 88 y/o female admitted to the Medical Floor for cough with suspected HAP. #Hospital Acquired Pneumonia -Patient was admitted to the hospital for IV antibiotics within past 90 days with failed outpatient therapy of Azithromycin last week -Continuation of symptoms and lack of improvement of lung findings on imaging is concerning -TMax(100.6) - all other vital signs stable, did fever at 0030 on 05/13 to 101.0 -Physical exam remarkable for crackles over left lung cortés and pleuritic chest pain -CT Chest: Bilateral infiltrates w/o evidence of PE -CXR with LLL infiltrate, no improvement compared to films from last week, concern for need for possible bronchoscopy for further eval per radiology rec -EKG: NSR w/ PAC -s/p Levaquin and Cefepime x1 in the ED - will continue w/ renal adjustment -LR @ 100 ml/hr -Consider Consult Pulmonology today #CAD -Continue home medication regimen #DM2 -Appears well-controlled at this time -CC Diet, will supplement as needed -Continue home medication regimen #HTN -Continue home medication regimen #HLD -Continue home medication regimen #COPD -DuoNebs 3 ml Q6H PRN -Continue home medication regimen -Will monitor respiratory status #Constipation, Chronic -Dulcolax 10 mg PO daily PRN #Normocytic Anemia, appears chronic -H/H 9.02/19, MCV 89 -continue to monitor AM labs Code: DNAR Diet: CC VTE PPx: Lovenox w/ SCDs Dispo: Patient is admitted to the Medical Floor for HAP. Consider Pulm consult today. Continue antibiotic regimen as per above, as well as fluid resuscitation and management of chronic medical conditions. Anticipate discharge in >48hr. Addendum - Attending - Attending Attestation Date/Time: 05/13/19 1002 I personally evaluated the patient and discussed the management with Dr. Harvey. I agree with the History, Examination, Assessment and Plan documented above with any addition or exceptions noted below. The patient was febrile overnight. Will continue levaquin and cefepime. She notes some improvement in symptoms. Will consider pulm consult if patient does not improve.
[2019-05-13] MEDS: Amlodipine 5 MG TAB PO SCH (09:13)
[2019-05-13] MEDS: Aspirin 81 mg Enteric Coated Tablet PO SCH (09:13)
[2019-05-13] MEDS: Folic Acid/Vit B Comp W-C PO SCH (09:13)
[2019-05-13] MEDS: Isosorbide Mononitrate (ER) 30 MG TAB PO SCH (09:13)
[2019-05-13] MEDS: Losartan/Hydrochlorothiazide 100 mg/25 mg Tablet PO SCH (09:14)
[2019-05-13] MEDS: Enoxaparin Sodium 30 MG/0.3 ML SYRINGE SC SCH (09:14)
[2019-05-13 10:50] LABS: Legionella Urinary Ag Negative (Negative); Strep pneumo Urine Ag NEGATIVE (NEGATIVE)
[2019-05-13] MEDS: Cefepime 2 GM in Sodium Chloride 0.9% 100 ML IVPB SCH (17:03)
[2019-05-13] MEDS: Benzonatate 100 MG CAP PO PRN (17:03)
[2019-05-13] MEDS: Montelukast Sodium 10 mg Tablet PO SCH (19:41)
[2019-05-13] MEDS: Famotidine 20 MG TAB PO SCH (20:20)
[2019-05-14] MEDS: Benzonatate 100 MG CAP PO PRN (04:09)
[2019-05-14] MEDS: Lactated Ringer's 1,000 ML IV SCH ×2 (05:44→14:57)
--- NOTE | 2019-05-14 05:46 | PDOC.FM ---
- Subjective Subjective: Patient resting comfortably in bed this mornings. States she was up all night with a cough, received a breathing treatment about 1 hour ago and this helped her. Continues to complain of white foamy sputum and also occasional thick dark sputum with deep cough. Patient additionally states that she is constipation, she usually takes a daily regimen of Docusate and sometimes Miralax at home. - Objective Vital Signs & Weight: Vital Signs (12 hours) Temp Pulse Resp BP BP Pulse Ox 05/14/19 05:20 85 16 96 05/14/19 04:01 98.8 F 89 18 111/58 L 97 05/14/19 00:00 98.1 F 80 16 105/50 L 97 05/13/19 19:34 99.3 F 96 18 131/68 98 05/13/19 17:48 87 16 98 Weight Admit Weight 59.012 kg Weight 59.012 kg I&O: 05/12/19 05/13/19 05/14/19 06:59 06:59 06:59 Intake Total 1875 Balance 1875 Result Diagrams: 05/14/19 06:10 05/14/19 06:11 Phys Exam - Physical Examination Constitutional: NAD HEENT: moist MMs, sclera anicteric Neck: supple, full ROM Respiratory: no rales, no rhonchi, wheezing present (scattered expiratory) diminished breath sounds at bilateral bases, worse on left Cardiovascular: RRR, no significant murmur Gastrointestinal: soft, non-tender, positive bowel sounds Musculoskeletal: no edema, pulses present Neurological: normal sensation, moves all 4 limbs Psychiatric: normal affect Skin: no rash, normal turgor Dx/Plan (1) Hospital-acquired pneumonia Code(s): J18.9 - PNEUMONIA, UNSPECIFIED ORGANISM; Y95 - NOSOCOMIAL CONDITION Status: Acute (2) CKD (chronic kidney disease) stage 3, GFR 30-59 ml/min Code(s): N18.3 - CHRONIC KIDNEY DISEASE, STAGE 3 (MODERATE) Status: Acute (3) Diabetes mellitus, type II Status: Acute Qualifiers: Diabetes mellitus fci insulin use: without intermediate school teacher use Diabetes mellitus complication status: without complication Qualified Code(s): E11.9 - Type 2 diabetes mellitus without complications (4) HLD (hyperlipidemia) Code(s): E78.5 - HYPERLIPIDEMIA, UNSPECIFIED Status: Acute Qualifiers: Hyperlipidemia type: unspecified Qualified Code(s): E78.5 - Hyperlipidemia , unspecified (5) HTN (hypertension) Code(s): I10 - ESSENTIAL (PRIMARY) HYPERTENSION Status: Acute Qualifiers: Hypertension type: essential hypertension Qualified Code(s): I10 - Essential (primary) hypertension - Plan Plan: Patient is an 88 y/o female admitted to the Medical Floor for cough with suspected HAP. #Hospital Acquired Pneumonia -Patient was admitted to the hospital for IV antibiotics within past 90 days with failed outpatient therapy of Azithromycin last week -Continuation of symptoms and lack of improvement of lung findings on imaging is concerning -TMax(100.6) - all other vital signs stable, did fever at 0030 on 05/13 to 101.0 -Physical exam remarkable for crackles over left lung cortés and pleuritic chest pain -CT Chest: Bilateral infiltrates w/o evidence of PE -CXR with LLL infiltrate, no improvement compared to films from last week, concern for need for possible bronchoscopy for further eval per radiology rec -EKG: NSR w/ PAC -s/p Levaquin and Cefepime x1 in the ED - will continue w/ renal adjustment -LR @ 100 ml/hr -Consider Consult Pulmonology if clinical condition worsens -RVP neg, Influenza neg, Urine Legionalla neg, Urine Strep pneumo neg -Physical Therapy recommends home with home health services for continued PT -Speech Therapy consulted, appreciate recs-at last admission did require textures -Sputum culture ordered with RT to collect -repeat CXR on 05/15 #CAD -Continue home medication regimen #DM2 -Appears well-controlled at this time -CC Diet, will supplement as needed -Continue home medication regimen -Consult Dietary-recommend Suplena shakes for meals <75% #HTN -Continue home medication regimen #HLD -Continue home medication regimen #COPD -DuoNebs 3 ml Q6H PRN -Continue home medication regimen -Will monitor respiratory status #Constipation, Chronic -Dulcolax 10 mg PO daily PRN -Scheduled Miralax & Senokot #Normocytic Anemia, appears chronic -H/H 9.02/19, MCV 89 -continue to monitor AM labs #Thrombocytopenia -appears new compared to last admission -possibly medication induced from either Levaquin or Cefepime or Lovenox, will do trial off Lovenox today to see if cause since continued need for Abx -continue to trend AM CBC Code: DNAR Diet: CC VTE PPx: Lovenox w/ SCDs Dispo: Patient is admitted to the Medical Floor for HAP. Consider Pulm consult if condition does not improve. Continue antibiotic regimen as per above, as well as fluid resuscitation and management of chronic medical conditions. Anticipate discharge in >48hr. Addendum - Attending - Attending Attestation Date/Time: 05/14/19 2413 I personally evaluated the patient and discussed the management with Dr. Harvey. I agree with the History, Examination, Assessment and Plan documented above with any addition or exceptions noted below. Pt complains of a lot of coughing overnight. Continue IV antibiotics. Leukocytosis improving. Will repeat cxr tomorrow morning.
[2019-05-14] MEDS: Acetaminophen 325 MG TAB PO PRN ×2 (05:47→17:18)
[2019-05-14 06:34] LABS: #Eosinphils 0.2 thou/uL (0.0-0.7); #Lymphocytes 1.4 thou/uL (1.20-3.40); #Monocytes 0.6 thou/uL (0.11-0.59); #Neutrophils 5.8 thou/uL (1.40-6.50); %Basophils 0.1 % (0.0-1.0); %Eosinophils 2.6 % (0.0-10.0); %Lymphocytes 17.1 % (21.0-51.0); %Monocytes 7.3 % (0.0-10.0); %Neutrophils 72.9 % (42.0-75.0); Hemoglobin 9.3 g/dL (12.0-16.0); Mean Corpuscular HGB CONC 33.8 g/dL (32.0-36.0); Mean Corpuscular Hemoglobin 30.4 pg (27.0-31.0); Mean Platelet Volume 8.1 fL (7.4-10.4); Platelet Count 93 thou/uL (130-400); RBC Distribution Width 14.2 % (11.5-14.5); Red Blood Cell (RBC) Count 3.05 mill/uL (4.20-5.40)
[2019-05-14 06:45] LABS: Anion Gap 11 mmol/L (10-20); BUN (Urea Nitrogen) 17 mg/dL (9.8-20.1); Calc. Creatinine Clearance 35 mL/min (70-130); Calcium 8.3 mg/dL (7.8-10.44); Carbon Dioxide 24 mmol/L (23-31); Chloride 103 mmol/L (98-107); Estimated GFR-MDRD 50; Glucose 128 mg/dL (83-110); Potassium 3.3 mmol/L (3.5-5.1); Sodium 135 mmol/L (136-145)
[2019-05-14] MEDS: Amlodipine 5 MG TAB PO SCH (07:50)
[2019-05-14] MEDS: Enoxaparin Sodium 30 MG/0.3 ML SYRINGE SC SCH (07:52)
[2019-05-14] MEDS: Aspirin 81 mg Enteric Coated Tablet PO SCH (07:52)
[2019-05-14] MEDS: Folic Acid/Vit B Comp W-C PO SCH (07:53)
[2019-05-14] MEDS: Losartan/Hydrochlorothiazide 100 mg/25 mg Tablet PO SCH (07:53)
[2019-05-14] MEDS: Isosorbide Mononitrate (ER) 30 MG TAB PO SCH (07:53)
[2019-05-14] MEDS: Senokot 8.6 MG TAB PO SCH (07:54)
[2019-05-14] MEDS: Polyethylene Glycol 3350 17 GM Packet PO SCH (07:55)
[2019-05-14] MEDS ORDERED: Guaifenesin DM 100-10/5 ML UDCUP PO PRN (09:03)
[2019-05-14] MEDS ORDERED: guaiFENesin ER 600 MG TAB PO SCH ×2 (09:15→21:00)
[2019-05-14] MEDS: Cefepime 2 GM in Sodium Chloride 0.9% 100 ML IVPB SCH (17:14)
[2019-05-14] MEDS: Famotidine 20 MG TAB PO SCH (21:51)
[2019-05-14] MEDS: Montelukast Sodium 10 mg Tablet PO SCH (21:51)
[2019-05-15] MEDS: Benzonatate 100 MG CAP PO PRN ×2 (01:42→07:59)
[2019-05-15] MEDS: Lactated Ringer's 1,000 ML IV SCH ×2 (03:23→13:31)
--- NOTE | 2019-05-15 05:51 | PDOC.FM ---
- Subjective Subjective: Patient states she did not sleep at all last night, was up coughing frequently. Did receive a breathing treatment around 1:00AM which helped some but states that she never received her cough medicine, MAR shows she did get some Tessalon. Patient's daughter also said she has noticed the patient is very anxious and "stir-crazy", more so than normal. Patient requests that someone call her granddaughter for an update at some point today. - Objective Vital Signs & Weight: Vital Signs (12 hours) Temp Pulse Resp BP Pulse Ox 05/15/19 02:52 98.8 F 97 18 96 05/14/19 20:06 99.8 F H 88 16 127/74 97 05/14/19 20:00 96 Weight Admit Weight 59.012 kg Weight 59.012 kg I&O: 05/13/19 05/14/19 05/15/19 06:59 06:59 06:59 Intake Total 3574 2049 Balance 3574 2049 Result Diagrams: 05/15/19 05:30 05/15/19 05:30 Phys Exam - Physical Examination Constitutional: NAD HEENT: moist MMs Neck: no JVD, supple, full ROM Soft expiratory wheezes in upper lobes. Coarse rhonchi in bilat lower lobes Cardiovascular: RRR, no significant murmur Gastrointestinal: soft, non-tender, positive bowel sounds Musculoskeletal: no edema, pulses present Neurological: normal sensation, moves all 4 limbs Psychiatric: normal affect, A&O x 3 Skin: no rash, normal turgor Dx/Plan (1) Hospital-acquired pneumonia Code(s): J18.9 - PNEUMONIA, UNSPECIFIED ORGANISM; Y95 - NOSOCOMIAL CONDITION Status: Acute (2) CKD (chronic kidney disease) stage 3, GFR 30-59 ml/min Code(s): N18.3 - CHRONIC KIDNEY DISEASE, STAGE 3 (MODERATE) Status: Acute (3) Diabetes mellitus, type II Status: Acute Qualifiers: Diabetes mellitus terminal superintendent insulin use: without terminal superintendent use Diabetes mellitus complication status: without complication Qualified Code(s): E11.9 - Type 2 diabetes mellitus without complications (4) HLD (hyperlipidemia) Code(s): E78.5 - HYPERLIPIDEMIA, UNSPECIFIED Status: Acute Qualifiers: Hyperlipidemia type: unspecified Qualified Code(s): E78.5 - Hyperlipidemia , unspecified (5) HTN (hypertension) Code(s): I10 - ESSENTIAL (PRIMARY) HYPERTENSION Status: Acute Qualifiers: Hypertension type: essential hypertension Qualified Code(s): I10 - Essential (primary) hypertension - Plan Plan: Patient is an 88 y/o female admitted to the Medical Floor for cough with suspected HAP. #Hospital Acquired Pneumonia -Patient was admitted to the hospital for IV antibiotics within past 90 days with failed outpatient therapy of Azithromycin last week -Continuation of symptoms and lack of improvement of lung findings on imaging is concerning -Temp 100.6 admission - all other vital signs stable, did fever at 0030 on to 101.0 -Physical exam remarkable for crackles over left lung cortés and pleuritic chest pain -CT Chest: Bilateral infiltrates w/o evidence of PE -CXR with LLL infiltrate, no improvement compared to films from last week, concern for need for possible bronchoscopy for further eval per radiology rec -EKG: NSR w/ PAC -s/p Levaquin and Cefepime x1 in the ED - will continue w/ renal adjustment -LR @ 100 ml/hr -Consider Consult Pulmonology if clinical condition worsens -RVP neg, Influenza neg, Urine Legionalla neg, Urine Strep pneumo neg -Physical Therapy recommends home with home health services for continued PT -Speech Therapy consulted, appreciate recs-at last admission did require textures, this admission speech states dysphagia has progressed to now moderate , recommends puree and nectar-thickened liquids -Sputum culture ordered with RT to collect -repeat CXR on 05/15 -schedule Robitussin, Tessalon, Mucinex #CAD -Continue home medication regimen #DM2 -Appears well-controlled at this time -CC Diet, will supplement as needed -Continue home medication regimen -Consult Dietary-recommend Suplena shakes for meals <75% #HTN -Continue home medication regimen #HLD -Continue home medication regimen #COPD -DuoNebs 3 ml Q6H PRN--will make scheduled -Continue home medication regimen -Will monitor respiratory status, still not requiring any supplemental O2 #Constipation, Chronic -Dulcolax 10 mg PO daily PRN -Scheduled Miralax & Senokot #Normocytic Anemia, appears chronic -H/H 9.9, MCV 89 -continue to monitor AM labs #Thrombocytopenia -appears new compared to last admission -possibly medication induced from either Levaquin or Cefepime or Lovenox, will do trial off Lovenox today to see if cause since continued need for Abx -continue to trend AM CBC #Anxiety/Agitation -will start on Hydroxyzine 25 mg -continue to monitor -will add on Melatonin at bedtime to promote sleep Code: DNAR Diet: CC VTE PPx: Lovenox w/ SCDs Dispo: Patient is admitted to the Medical Floor for HAP. Consider Pulm consult if condition does not improve. Continue antibiotic regimen as per above, as well as fluid resuscitation and management of chronic medical conditions. Anticipate discharge in >48hr. Addendum - Attending - Attending Attestation Date/Time: 05/15/19 7614 I personally evaluated the patient and discussed the management with Dr. Harvey. I agree with the History, Examination, Assessment and Plan documented above with any addition or exceptions noted below. Patient's wbc count back to normal. CXR looks clearer. She is afebrile and O2 sats are stable on room air. Will schedule nebs and cough meds. Pt will be transitioned to po levaquin and is stable for discharge.
[2019-05-15 06:00] LABS: #Eosinphils 0.1 thou/uL (0.0-0.7); #Lymphocytes 0.5 thou/uL (1.20-3.40); #Monocytes 0.7 thou/uL (0.11-0.59); #Neutrophils 5.7 thou/uL (1.40-6.50); %Basophils 0.1 % (0.0-1.0); %Eosinophils 1.3 % (0.0-10.0); %Lymphocytes 6.9 % (21.0-51.0); %Monocytes 9.4 % (0.0-10.0); %Neutrophils 82.3 % (42.0-75.0); Hemoglobin 8.9 g/dL (12.0-16.0); Mean Corpuscular HGB CONC 33.8 g/dL (32.0-36.0); Mean Corpuscular Hemoglobin 30.3 pg (27.0-31.0); Mean Corpuscular Volume 89.6 fL (78.0-98.0); Mean Platelet Volume 7.6 fL (7.4-10.4); Platelet Count 118 thou/uL (130-400); RBC Distribution Width 14.1 % (11.5-14.5); Red Blood Cell (RBC) Count 2.95 mill/uL (4.20-5.40)
[2019-05-15] MEDS ORDERED: Melatonin 3 MG TAB PO PRN (06:01)
[2019-05-15 06:09] LABS: Anion Gap 12 mmol/L (10-20); BUN (Urea Nitrogen) 13 mg/dL (9.8-20.1); Calc. Creatinine Clearance 44 mL/min (70-130); Calcium 8.3 mg/dL (7.8-10.44); Carbon Dioxide 23 mmol/L (23-31); Chloride 105 mmol/L (98-107); Estimated GFR-MDRD 65; Glucose 137 mg/dL (83-110); Potassium 3.1 mmol/L (3.5-5.1); Sodium 137 mmol/L (136-145)
[2019-05-15 07:32] VITALS: BP 152/73; TEMP 98.4
[2019-05-15] MEDS ORDERED: Potassium Chloride 20 MEQ TAB PO SCH (08:45)
[2019-05-15] MEDS ORDERED: hydrOXYzine 25 MG TAB PO SCH (09:00)
--- NOTE | 2019-05-15 09:36 | RAD ---
2 VIEW CHEST: Date: 05/15/19 HISTORY: Follow-up pneumonia. COMPARISON: 05/12/[address] chest dated 05/12/19. FINDINGS: Patchy infiltrate in the left lower lung is seen on today's exam, more prominent than on the prior ch est film. Previous CT demonstrated infiltrate in the lingula and left lower lobe. There is patchy infiltrate in the right mid and right lower lung, better delineated on the prior CT, but again seen on today's plain film. IMPRESSION: Bilateral infiltrates are again seen, better delineated on CT of 05/12/19. POS: [facility]
[2019-05-15] MEDS: Aspirin 81 mg Enteric Coated Tablet PO SCH (10:25)
[2019-05-15] MEDS: Amlodipine 5 MG TAB PO SCH (10:25)
[2019-05-15] MEDS: Losartan/Hydrochlorothiazide 100 mg/25 mg Tablet PO SCH (10:28)
[2019-05-15] MEDS: Folic Acid/Vit B Comp W-C PO SCH (10:28)
[2019-05-15] MEDS: Senokot 8.6 MG TAB PO SCH (10:28)
[2019-05-15] MEDS: Isosorbide Mononitrate (ER) 30 MG TAB PO SCH (10:29)
[2019-05-15] MEDS: Polyethylene Glycol 3350 17 GM Packet PO SCH (10:29)
[2019-05-15] MEDS: Benzonatate 100 MG CAP PO SCH ×2 (10:30→16:00)
[2019-05-15] MEDS: Guaifenesin DM 100-10/5 ML UDCUP PO SCH ×3 (10:35→17:28)
--- NOTE | 2019-05-15 15:36 | PQF ---
MANDY JUSTICESUMEET MORALES [id number] CLINICAL DOCUMENTATION IMPROVEMENT CLARIFICATION FORM: ICD-10 Updated PLEASE DO AN ADDENDUM TO THE PROGRESS NOTE WITH ANY DOCUMENTATION UPDATES OR ADDITIONS AND CARRY THROUGH TO DC SUMMARY. THANK YOU. DATE: 05/15/2019 ATTN:DR. Jean DUQUE Please exercise your independent, professional judgment in responding to the clarification form. Clinical indicators are provided on the bottom of this form for your review. Please check appropriate box(s): [ x ] Hyponatremia please specify etiology, if known [ ] Hyponatremia due to SIADH (Syndrome of Inappropriate Secretion of Antidiuretic Hormone) [ ] Unable to determine In addition, please specify: Present on Admission (POA): [ x ] Yes [ ] No [ ] Unable to determine CLINICAL INDICATORS - SIGNS / SYMPTOMS / LABS / RESULTS AND LOCATION IN EMR 05/12 SODIUM 134 05/13 SODIUM 133 05/14 SODIUM 135 RISK: ADVANCED AGE ( 88), DX CKD3, PNEUMONIA , DM (H&P/ BARRONI) 05/12 TREATMENTS: SERIAL LABS 05/12-PRESENT) IV FLUIDS LACTATED RINGERS ( 05/12- PRESENT ) THANK YOU! [employer] (This form is maintained as a part of the permanent medical record) 2014 [employer] All Rights Reserved [email or web address] [phone] MTDD
[2019-05-15] MEDS: Cefepime 2 GM in Sodium Chloride 0.9% 100 ML IVPB SCH (17:28)
--- NOTE | 2019-05-16 13:54 | EKG ---
Test Reason : Blood Pressure : / mmHG Vent. Rate : 101 BPM Atrial Rate : 101 BPM P-R Int : 000 ms QRS Dur : 072 ms QT Int : 344 ms P-R-T Axes : 000 047 020 degrees QTc Int : 446 ms Sinus tachycardia with Premature atrial complexes Septal infarct , age undetermined Abnormal ECG Confirmed by LAMAR MALDONADO MD ([id number]), film editor supervisor CORBIN CALLAHAN ([id number]) on 05/16/2019 1:54:25 PM Referred By: Confirmed By:LAMAR MALDONADO MD
--- NOTE | 2019-05-16 13:54 | EKG ---
Test Reason : Blood Pressure : / mmHG Vent. Rate : 098 BPM Atrial Rate : 098 BPM P-R Int : 148 ms QRS Dur : 070 ms QT Int : 332 ms P-R-T Axes : 082 049 026 degrees QTc Int : 423 ms Sinus rhythm with Premature supraventricular complexes Septal infarct , age undetermined Abnormal ECG Confirmed by LAMAR MALDONADO MD ([id number]), editorial assistant CORBIN CALLAHAN ([id number]) on 05/16/2019 1:54:15 PM Referred By: Confirmed By:LAMAR MALDONADO MD
--- NOTE | 2019-05-16 18:22 | DIS ---
DATE OF ADMISSION: 05/12/2019 DATE OF DISCHARGE: 05/15/2019 RESIDENT: Barby Harvey DO ADMITTING ATTENDING: Husam Landeros MD DISCHARGE ATTENDING: Jimenez Hess MD CONSULTS: 1. Case Management. 2. Dietitian. 3. Occupational Therapy. 4. Physical Therapy. 5. Speech therapy. PROCEDURES: 1. Chest x-ray on May 12, 2019: Left lower lobe patchy infiltrate. No significant effusion. No acute osseous abnormality. 2. Chest/thorax CTA on May 12, 2019: Bilateral early infiltrative lung changes. No CT evidence for pulmonary embolus. There are some minimal pneumonitis type changes in both upper lobes. Also some changes, which are slightly more prominent in the middle lobe and lingula and more confluent pneumonic process developing in the left lower lobe. Also some patchy parenchymal changes in the right lower lobe. Small mediastinal and hilar lymph nodes do not appear enlarged. 3. Chest x-ray on May 15, 2019: Bilateral infiltrates are again seen; however, these appear to be improving compared to the chest x-ray on May 12, 2019. PRIMARY DIAGNOSIS: Hospital-acquired pneumonia. SECONDARY DIAGNOSES: 1. Coronary artery disease. 2. Diabetes mellitus, type 2. 3. Hypertension. 4. Hyperlipidemia. 5. Chronic obstructive pulmonary disease. 6. Constipation, chronic. 7. Normocytic anemia, chronic. 8. Thrombocytopenia. 9. Anxiety. DISCHARGE MEDICATIONS: 1. Acetaminophen 650 mg p.o. q.4 hours p.r.n. for pain. 2. Robitussin DM 50 mg p.o. q.4 hours for cough. 3. Hydroxyzine 25 mg p.o. b.i.d. 4. DuoNeb treatments q.i.d. p.r.n. for cough or wheezing. 5. Levaquin 750 mg p.o. daily for 7 days. 6. Melatonin 3 mg p.o. at bedtime p.r.n. 7. Tessalon 100 mg p.o. t.i.d. p.r.n. 8. Senokot two tabs p.o. daily. 9. Montelukast sodium 10 mg p.o. daily. 10. Metoprolol 25 mg p.o. daily. 11. Losartan/hydrochlorothiazide 100/25 mg tablet one tablet p.o. daily. 12. Isosorbide mononitrate 30 mg p.o. daily. 13. Glipizide 2.5 mg p.o. daily. 14. Folic acid 1 mg p.o. daily. 15. Vitamin B12 of 1000 mcg p.o. daily. 16. Vitamin D3 of 10,000 units p.o. every seven days. 17. Aspirin 81 mg p.o. daily. 18. Amlodipine 2.5 mg p.o. daily. DISCONTINUED MEDICATIONS: None. HISTORY OF PRESENT ILLNESS/HOSPITAL COURSE: The patient is an 88-year-old female with past medical history of COPD, CAD, hypertension, hyperlipidemia, and chronic kidney disease stage 3, who presents to the ED from an urgent care clinic transfer for evaluation of a cough. The patient was recently treated for community-acquired pneumonia with azithromycin from Dr. Styles last week. The patient was also treated for community-acquired pneumonia in late February 2019 at [facility]. At that time, received a course of azithromycin. The patient states that she has had a persistent cough for the last 1-1/2 months, associated with white sputum production, subjective fevers and chills, body aches, and pleuritic chest pain. However, her cough and chest pain became acutely worse earlier that day, which prompted her presentation to the urgent care clinic. A chest x-ray was performed, which showed a relatively stable left lower lobe infiltrate consistent with her previous hospitalization for community-acquired pneumonia subsequent followups. She was told to present to the [facility] for inpatient treatment. Her son-in-law was present at the time of evaluation and assisted with portions of the HPI. Within the ED, she was administered cefepime and Levaquin. An additional CTA of the chest was performed, which demonstrated bilateral infiltrate consistent with presumptive diagnosis of pneumonia without evidence of pulmonary embolism. The patient was admitted to the medical unit for continued management of presumed hospital-acquired pneumonia since the pneumonia had been acquired within the past 90 days. The patient was continued on a course of cefepime and Levaquin. She received three days worth of cefepime, after which it was discontinued. She also received three days of Levaquin in the hospital and this was continued for an additional seven day course as an outpatient. Throughout hospital stay, the patient continued to complain of a cough. Her initial sputum culture came back with a rejected sample due to saliva. The patient had a second sputum sample that was sent and is still pending. Throughout the duration of the patient's hospital stay, she continued to complain of a cough, which did improve after receiving breathing treatments. The patient never required oxygen for the duration of her stay with oxygen saturations on room air ranging from 96% to 100%. The patient had an initial fever of 101 Fahrenheit on day of admission. However, she had no fevers for the rest of her stay. The patient's lung exam continued to improve each day. She had a repeat chest x-ray performed on the third day of admission, which was compared to the chest x-ray that was performed on admission. This three day interval showed an improvement in the pneumonia, which we expect to continue to improve with the complete Levaquin course. The patient will need a followup chest x-ray as an outpatient in one month to assess for resolving pneumonia. Additionally, during the patient's hospital stay, her daughter noted that the patient appeared to be more anxious "still crazy" and requested something to help the patient relax. The patient was started on hydroxyzine 25 mg b.i.d. for this, which can be continued as an outpatient with close followup. For the patient's cough, the patient was counseled that this is expected for the clinical condition of pneumonia and that she should expect the cough to continue for the next few weeks. She was provided with prescriptions for Robitussin, Tessalon, and Mucinex that she was instructed to continue taking as an outpatient. During the patient's hospital stay, she was re-evaluated by Physical Therapy, Occupational Therapy and Speech Therapy. The patient had previously been receiving home health services for these things after her last hospital admission back in February 2019. The therapy teams that evaluated her with this admission, recommended that she continue to receive home health therapy. They did not recommend any inpatient rehab or continued therapy at any other facility. The patient was counseled by Speech therapy to have a pureed and nectar thickened liquid diet. She was also counseled not to use straws. However, the patient continued to use these things despite the advice. The patient was counseled on discharge that she will need continued physical therapy and speech therapy at home and these will be arranged with the [facility] that she has been using previously. The patient was in agreement with this plan and stated that she felt comfortable going home. The patient's daughter did feel that she felt the patient was not ready to go home. The daughter requested that we call the patient's granddaughter, who lives out of state and explained the patient's current medical conditions. I contacted the patient's granddaughter with the patient and daughter present in the room. I spent about 10 to 15 minutes on this phone call, explaining the patient's hospital course and plan for discharge with continued antibiotics and medicine for management of her cough. All of the granddaughter's questions were answered to satisfaction and granddaughter was in agreement with the plan to discharge the patient. The patient was set up with an appointment at [facility] at 10:20 a.m. on May 18, 2019. She was counseled that she needs to keep this appointment for close followup as an outpatient. In the afternoon of May 15, 2019, the patient was deemed clinically stable for discharge back to home. DISPOSITION: STABLE: DISCHARGE INSTRUCTIONS: 1. Location: Home. 2. Diet: Regular with restrictions of recommended liquids and pureed solids. Also instructed to sip from the side of a cup and not use straws. 3. Activity: As tolerated. 4. Follow up with Dr. Goldsmith, PCP at [facility] on May 18, 2019, at 10:20 a.m. 5. Continue home health with physical therapy and speech therapy. 6. Provide incentive spirometry at discharge, continue nebulizer treatment with equipment sent to pharmacy. Job ID: [id number]
== END 2019-05-15 19:16 | disposition home health service (06) | DRG 194 ==
LOC: ERS 15:46 → T4-B 17:06
PROVIDERS: ADMIT Family Medicine; ATTEND Family Medicine
DX: J18.9 Pneumonia, unspecified organism (principal); J44.0 Chronic obstructive pulmonary disease with (acute) lower respiratory infection; E87.1 Hypo-osmolality and hyponatremia; E78.5 Hyperlipidemia, unspecified; I12.9 Hypertensive chronic kidney disease with stage 1 through stage 4 chronic kidney disease, or unspecified chronic kidney disease; N18.3 Chronic kidney disease, stage 3 (moderate); Z88.0 Allergy status to penicillin; Z79.82 Long term (current) use of aspirin; E03.9 Hypothyroidism, unspecified; Z66 Do not resuscitate; Y95 Nosocomial condition; E11.9 Type 2 diabetes mellitus without complications; K59.09 Other constipation; I25.10 Atherosclerotic heart disease of native coronary artery without angina pectoris
CPT/HCPCS: 36415; 36416; 71046; 71275; 80048; 80053; 81003; 81015; 83605; 85025; 87070; 87205; 87449; 87633; 87899; 93005; 94640; 96365; 96366; 96367; J0692; J1650; J1956; J3490; J7620; Q9967

== ENCOUNTER 2019-06-05 14:29 | Outpatient (CLI) | payer MEDICARE ==
--- NOTE | 2019-06-05 15:55 | RAD ---
PA AND LATERAL VIEWS CHEST: HISTORY: Dyspnea. FINDINGS: Comparison is made with the exam of 05/15/2019. The heart size is normal. The lungs are expanded with internal resolution of the infiltrates noted o n the previous exam. Mild chronic changes are again seen. No lobar consolidation, pneumothoraces, o r pleural effusions are identified. IMPRESSION: No acute process. POS: TPC
== END 2019-06-05 14:30 | disposition home or self-care (01) ==
LOC: RAD 14:29
PROVIDERS: ATTEND Internal Medicine Critical Care Medicine
DX: R06.00 Dyspnea, unspecified (principal)
CPT/HCPCS: 71046

== ENCOUNTER 2019-07-28 06:29 | Outpatient (CLI) | payer MEDICARE ==
[2019-07-28 09:14] LABS: #Basophils 0.1 thou/uL (0.0-0.2); #Eosinphils 0.6 thou/uL (0.0-0.7); #Lymphocytes 1.3 thou/uL (1.20-3.40); #Monocytes 0.3 thou/uL (0.11-0.59); #Neutrophils 1.8 thou/uL (1.40-6.50); %Basophils 1.4 % (0.0-1.0); %Eosinophils 15.4 % (0.0-10.0); %Lymphocytes 31.6 % (21.0-51.0); %Neutrophils 43.6 % (42.0-75.0); Hemoglobin 10.2 g/dL (12.0-16.0); Mean Corpuscular Hemoglobin 30.9 pg (27.0-31.0); Mean Corpuscular Volume 93.6 fL (78.0-98.0); Mean Platelet Volume 7.8 fL (7.4-10.4); Platelet Count 166 thou/uL (130-400); RBC Distribution Width 13.7 % (11.5-14.5); Red Blood Cell (RBC) Count 3.29 mill/uL (4.20-5.40)
[2019-07-28 09:26] LABS: Bilirubin Negative (Negative); Blood, Urine Negative (Negative); Clarity Clear (Clear); Glucose, Urine (Dipstick) Normal (Negative); Leukocyte 25 Leu/uL (Negative); Nitrite Negative (Negative); Protein, Urine (Dipstick) Negative (Neg-Trace); RBC/HPF 0-3 HPF (0-3); Squamous Epithelial 0-3 HPF (0-3); Urobilinogen Normal mg/dL (Less than 2)
[2019-07-28 09:33] LABS: Bacteria/HPF None Seen HPF (None Seen)
[2019-07-28 09:41] LABS: Anion Gap 13 mmol/L (10-20); BUN (Urea Nitrogen) 26 mg/dL (9.8-20.1); Calc. Creatinine Clearance 0 mL/min (70-130); Calcium 8.7 mg/dL (7.8-10.44); Carbon Dioxide 22 mmol/L (23-31); Chloride 109 mmol/L (98-107); Estimated GFR-MDRD 41; Glucose 92 mg/dL (83-110); Potassium 4.4 mmol/L (3.5-5.1); Sodium 140 mmol/L (136-145)
== END 2019-07-28 06:30 | disposition home or self-care (01) ==
LOC: LABBT 06:29
PROVIDERS: ATTEND Orthopaedic Surgery Hand Surgery
DX: Z01.818 Encounter for other preprocedural examination (principal); M18.12 Unilateral primary osteoarthritis of first carpometacarpal joint, left hand; S63.592A Other specified sprain of left wrist, initial encounter; M24.542 Contracture, left hand
CPT/HCPCS: 80048; 81001; 85025; 93005; 93010

== ENCOUNTER 2019-08-01 06:13 | Observation (INO) | payer MEDICARE ==
[2019-07-28 08:32] VITALS: BMI 20.6
[2019-08-01] MEDS ORDERED: Midazolam HCl 2 mg/2 ml Vial ONE (07:59)
[2019-08-01] MEDS ORDERED: Fentanyl 100 MCG/2 ML VIAL ONE ×2 (07:59→08:08)
[2019-08-01] MEDS ORDERED: traMADol HCl 50 MG TAB PO PRN ×2 (08:13)
[2019-08-01] MEDS ORDERED: Ropivacaine 0.2% 550 ML 550 ML NERVE BLCK SCH (08:13)
[2019-08-01] MEDS ORDERED: Acetaminophen 325 MG TAB PO PRN ×2 (08:13→08:53)
[2019-08-01] MEDS ORDERED: Ondansetron PF 4 MG/2 ML Vial IVP PRN (08:13)
[2019-08-01] MEDS ORDERED: Promethazine HCl 25 MG/ML VIAL IM PRN ×2 (08:13→14:17)
[2019-08-01] MEDS ORDERED: Zolpidem Tartrate 5 MG TAB PO PRN (08:13)
[2019-08-01] MEDS ORDERED: HYDROcodone/Acetaminophen 10/325 mg Tablet PO PRN (08:13)
[2019-08-01] MEDS ORDERED: Fentanyl 100 MCG/2 ML VIAL IV PRN (08:14)
[2019-08-01] MEDS ORDERED: Bacitracin Zinc Ointment 30 gm TUBE ONE (08:21)
[2019-08-01] MEDS ORDERED: Bupivacaine PF 0.5% 30 ML VIAL ONE (08:22)
[2019-08-01] MEDS ORDERED: EPINEPHrine 1 MG/ML AMP ONE (08:22)
[2019-08-01] MEDS ORDERED: Vancomycin 1 GM/200 ML BAG ONE (08:32)
[2019-08-01] MEDS ORDERED: Bisacodyl 10 MG SUPP PR PRN (08:53)
[2019-08-01] MEDS ORDERED: Acetaminophen/Codeine 30-300mg Tablet PO PRN (08:53)
[2019-08-01] MEDS ORDERED: Ondansetron PF 4 MG/2 ML Vial IV PRN (08:53)
[2019-08-01] MEDS ORDERED: Morphine 2 MG/ML SYRINGE SLOW IVP PRN (08:53)
[2019-08-01] MEDS ORDERED: Milk Of Magnesia 30 ML UDCUP PO PRN (08:53)
[2019-08-01] MEDS ORDERED: HYDROcodone/Acetaminophen 5/325 mg Tablet PO PRN (08:53)
[2019-08-01] MEDS ORDERED: Meperidine HCl/PF 25 MG/ML VIAL IM PRN (08:56)
[2019-08-01] MEDS ORDERED: PHARMACY TO RENALLY ADJUST ABX FS SCH (09:00)
[2019-08-01] MEDS ORDERED: TETANUS AND DIPHTHERIA TOX/PF 0.5 ML DISP.SYRIN IM SCH (09:00)
[2019-08-01] MEDS ORDERED: Vancomycin 1 GM in Premix Bag 1 BAG IVPB SCH (09:00)
[2019-08-01] MEDS ORDERED: Phenylephrine 10 MG/ML VIAL ONE (09:31)
[2019-08-01] MEDS ORDERED: Ondansetron PF 4 MG/2 ML Vial ONE (09:45)
[2019-08-01] MEDS ORDERED: EPHEDRINE 25 MG/5 ML SYRINGE ONE (09:45)
[2019-08-01] MEDS ORDERED: Lidocaine 1% PF 5 ML VIAL ONE (09:45)
[2019-08-01] MEDS ORDERED: PHENYLEPHRINE-NS 100 MCG/ML 10 ML SYRINGE ONE (09:45)
[2019-08-01] MEDS ORDERED: PROPOFOL 200 MG/20 ML VIAL ONE (09:45)
[2019-08-01] MEDS ORDERED: Ropivacaine 0.2% HCl/PF (40 MG/20 ML VIAL) ONE (09:46)
--- NOTE | 2019-08-01 13:38 | RAD ---
Intraoperative imaging of the left thumb: 08/01/2019 COMPARISON: None HISTORY: Left thumb repair, ligament reconstruction FINDINGS: 8 intraoperative images of the left thumb provided. Images demonstrate percutaneous pins in the region of the first metacarpal phalangeal joint and overlying the base of the first and second metacarpals. There is a suture anchor at the level of the first metacarpal head. IMPRESSION: Intraoperative imaging as detailed above.
--- NOTE | 2019-08-01 13:44 | RAD ---
XR Forearm Lt 2 View STANDARD History: Ulnar shortening with Rayhack plate Comparison: None. Findings: Plate and screw fixation of the ulna. Impression: Fluoroscopy for surgical purposes.
[2019-08-01] MEDS ORDERED: Promethazine HCl 25 MG/ML VIAL SLOW IVP PRN (14:17)
[2019-08-01] MEDS ORDERED: Ondansetron HCl/PF 4 MG/2 ML Vial IVP PRN (14:17)
[2019-08-01] MEDS: HYDROcodone/Acetaminophen 10/325 mg Tablet PO PRN (17:16)
[2019-08-01] MEDS: Aspirin 81 mg Enteric Coated Tablet PO SCH ×2 (20:40→20:46)
--- NOTE | 2019-08-01 21:45 | OP ---
DATE OF PROCEDURE: 08/01/2019 PREOPERATIVE DIAGNOSES: 1. Osteoarthritis of thumb interphalangeal joint. 2. Dislocation of thumb metacarpophalangeal joint with tight dorsal capsule and lax palmar capsule. 3. 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 4. Triangular fibrocartilage degenerative tear type 2B. 5. Synovitis, wrist. 6. Ulnocarpal impingement. POSTOPERATIVE DIAGNOSES: 1. Osteoarthritis of thumb interphalangeal joint. 2. Dislocation of thumb metacarpophalangeal joint with tight dorsal capsule and lax palmar capsule. 3. 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 4. Triangular fibrocartilage degenerative tear type 2B. 5. Synovitis, wrist. 6. Ulnocarpal impingement. INTRAOPERATIVE FINDINGS: 1. No central flexor pollicis longus tendon seen on the remnant seen with no true ability to flex the interphalangeal joint with early interphalangeal joint osteoarthritis. 2. Greater than 90% sublux and almost completely dislocated dorsal proximal phalanx thumb metacarpophalangeal joint on the left side. 3. 90% thumb carpometacarpal joint osteoarthritis both sides trapezium. 4. 50% central triangular fibrocartilage tear with ulnocarpal impingement and synovitis with appearance of possible gouty synovitis. PROCEDURES PERFORMED: 1. Left thumb metacarpophalangeal joint capsulodesis. 2. Metacarpophalangeal joint open dislocation and open treatment with pinning. 3. Dorsal thumb metacarpophalangeal joint capsulectomy. 4. C-arm with supervision. 5. Arthroscopic triangular fibrocartilage tear debridement. 6. Arthroscopic wrist synovectomy complete. 7. Open left ulnar shortening Rayhack osteotomy 2 mm. 8. Flexor carpi radialis transfer. 9. Left thumb carpometacarpal joint arthroplasty (ligament replacement tendon position). 10. Left thumb trapeziectomy complete. 11. Short-arm splint application. ESTIMATED BLOOD LOSS: 60 mL. TOURNIQUET TIME: First tourniquet 36 minutes at 250 mmHg pressure, deflated 30 minutes then elevated for 125 minutes and no further deflation inflation. INDICATION: The patient with history of poor thumb motion to include poor thumb interphalangeal function, marked hyperextension following with almost complete dislocation of the left thumb MP joint and then zigzag deformity with severe stage IV osteoarthritis thumb carpometacarpal joint. The patient also had decreased wrist motion first contralateral side, marked ulnocarpal pain and impingement. TFCC tear by exam and see an MRI with evidence of ulnocarpal impingement. Then, all failed conservative treatment to include injections, therapy, time, and bracing. DESCRIPTION OF PROCEDURE: After successful anesthesia which first involved a block and then LMA only, the patient had the limb prepped and draped and placed in Arthrex arm hull with appropriate weight and suspension. We outlined the portals along with a zigzag incision along the ulna and performed the arthroscopy. Standard 3, 4, 6U, and 6R portals were established and the wrist was inflated with 10 mL of 0.5% Marcaine with epinephrine. We then established these portals, the panoramic view, and found no problems into wrist ulnocarpal joint. We found a boggy synovitis with a small amount of white new crystalline material, which might be reminiscent of gout, so we took a specimen and sent it to the lab. We also did a complete synovectomy alternating between working portals and visualization portals and used a combination of a small cutter from the knee arthroscopy set and shaved it. We performed a complete TFCC tear resection. The tear initially involved approximately 40% of the central portion where there was a small rim on the radial side, a large rim on the dorsal and ulnar side. We then had to resect all this. We had to make it stable area, and then removed the scope. We then proceeded to outline incision along the direct ulnar border of ulna, inflated the tourniquet and then elevated it to 250 mmHg pressure and applied it. The exsanguinated limb was included with the tourniquet inflation and we carried the zigzag incision through skin and subcutaneous tissue to reach the ulnar. We made a direct ulnar incision. We nearly found to be the flat portion of bone so we placed a plate here. We used C-arm to recognize the bone cuts would not be out of line with appropriateness, and then because of the fracture and tagged the fascia and periosteum elevated to remove the periosteum. Placed the Rayhack plate with appropriate 3 holes down on the bone, held in place with an appropriate drill measure tap screw technique, placing the Synthes screws and then still wanting to complete the task today because of the marked impingement. We placed the Rayhack cut guide along with a standard drill measure tap screw technique using 2.7 screws, used the saw through saw capture to perform a 2 mm cut, removed this wafer. Then, we placed on the formal plate with the reduction clamps and then reduced the defect. We then placed the lag screw across it, and then 2 screws distal. The patient then had the tourniquet deflated. We obtained hemostasis, used 30 minutes to close the wound. At that point, closed along the portals, we were able to proceed with the thumb in this portion of this procedure. We re-exsanguinated the limb and elevated the pressure to 250 mmHg pressure. We then evaluated the left thumb and saw that there was so little passive motion at the thumb IPJ with the procedure, it would not be helpful at this point, so we decided to do a capsulodesis with reduction and then dorsal capsulotomy, palmar capsulodesis with anchors in order to restore the flexion attitude. We did this completely before we finished the osteotomy and we finished the CMC procedure, protected the radial nerve and ulnar nerve branches, saw the capsule was very tight and attenuated, extended the curvilinear incision to the dorsal palmar skin distally over the MP joint. We released the retinaculum and then released the capsule. We then reduced it over 90% from 90%, dorsally subluxed to 90%, covered at 30 degrees of flexion. We pinned the joint in this position and cut the wires below the skin. We saw it was adequate on C-arm. We placed an anchor in the center of the palmar aspect of the metacarpal head and neck junction, used the heavy sutures to make the first repair of the capsule that would be stripped off and then one suture with 4-0 Prolene on either side of the central anchor. We then turned our attention back to the primary thumb carpometacarpal joint incision where we carried a curvilinear incision through skin and subcutaneous tissue, protected the radial nerve branches and the median nerve branches the two from each other, made an incision to separate the fascia, holding the thenar musculature away from the abductor and extensor short muscle and tendon, which was done. We entered the joint between the abductor and extensor, completely the trapezium from the thumb carpometacarpal joint and it was here we saw synovitis enough to confirm the need for specimen to rule out gout and sent this to the lab. We then began 360 degree dissection of the base of the thumb at the trapezium joint. We protected the large radial artery branch as we could visualize, and then placed a 2.0 Steinmann pin in the thumb trapezium to help control it. Then this allowed us to visualize within the joint surface of the flexor carpi radialis tendon, from its fascial tunnel on the ulnar side of the trapezium, released the joint surrounding to include trapezium hamate and we were able to elevate the trapezium completely without harming the flexor carpi radialis. Then, we placed a large baby Hohmann underneath the base of the thumb metacarpal, elevated it, so we could protect the flexor carpi radialis, and 0.15 mm on the lateral wall, we found a place for drilling. We aimed toward junction of the chondral and a metaphyseal bone, which we were able to obtain with a drill and 2.5 mm Synthes type. We expanded with a 3.5 drill and then used multiple curette until we had approximately a three and three-quarter millimeter tunnel. C-arm showed adequate position of the bone and the tunnel. We then expanded the tunnel with a #1 and 00-curette until we had plenty of room. We made 2 more proximal incisions to harvest the flexor carpi radialis posterior to harvest hole. We realized once we got into the wrist wall that was slightly too big, so we resected approximately 1/5 of it from one end to the other. We then passed the tendon through the hole without abnormalities, passed deep to the abductor pollicis longus, and then placed the joint and reduced nearly anatomic position and pinned it x2 to the index finger metacarpal base. We then secured the tendon under appropriate tension and without the C-arm showing changed position using three 4-0 Prolene x4, placed the port to the FCR as a cushion at the base of the thumb metacarpal, and we used the previously placed 3-0 suture deep in the dorsal and ulnar capsule as a secured place for the weave of the flexor carpi radialis remnant not already in the tunnels. This was done using a class (anchovester) style with the 3-0 Prolene on Sathya needles. We secured this deep into the joint and tied it. Tourniquet was released. We obtained hemostasis. We then had pinned the metacarpal x2 with K-wires before we tied the FCR tendon and found it to be in great position. We then closed the capsule over the abductor pollicis longus sparing all cutaneous nerves and the extensor pollicis brevis. We brought the 2 K-wires down through separate stab wounds parallel to the suture line, but not through it, repaired the incision after hemostasis was re-obtained using interrupted 4-0 nylon in a mattress pattern. We closed the harvest sites with the same suture technique, since she had a block, we were not using Marcaine. The patient had a bacitracin, Adaptic, 4x4s, Kerlix, and a splint applied and leaving the operating room without evidence of anesthetic or operative complication. Job ID: [id number]
[2019-08-02] MEDS: HYDROcodone/Acetaminophen 10/325 mg Tablet PO PRN ×3 (00:34→19:16)
[2019-08-02] MEDS: Aspirin 81 mg Enteric Coated Tablet PO SCH ×2 (08:19→20:06)
[2019-08-02 08:30] LABS: Vancomycin, Random 7.5 ug/mL (See Comment)
[2019-08-02] MEDS ORDERED: Vancomycin HCl 750 MG in Sodium Chloride 0.9% 250 ML 250 ML IVPB SCH ×2 (09:00→10:15)
[2019-08-02] MEDS ORDERED: traMADol HCl 50 MG TAB PO PRN ×2 (09:39→09:40)
[2019-08-03 09:24] LABS: Vancomycin, Random 10.5 ug/mL (See Comment)
[2019-08-03] MEDS: Aspirin 81 mg Enteric Coated Tablet PO SCH (09:35)
[2019-08-03] MEDS ORDERED: Vancomycin 1 GM in Premix Bag 1 BAG IVPB SCH (10:00)
[2019-08-03 11:07] VITALS: TEMP 98.5
[2019-08-03 15:06] VITALS: BP 106/65
[2019-08-04] MEDS ORDERED: Vancomycin 1 GM in Premix Bag 1 BAG IVPB SCH (09:00)
== END 2019-08-03 17:45 | disposition home or self-care (01) ==
LOC: SDC 06:13 → SURG A 08:56
PROVIDERS: ADMIT Orthopaedic Surgery Hand Surgery; ATTEND Orthopaedic Surgery Hand Surgery
PROC: 0LU607Z Supplement Left Lower Arm and Wrist Tendon with Autologous Tissue Substitute, Open Approach (ICD-10-PCS; principal; 2019-08-01)
PROC: 0RQN0ZZ Repair Right Wrist Joint, Open Approach (ICD-10-PCS; 2019-08-01)
PROC: 0MB64ZZ Excision of Left Wrist Bursa and Ligament, Percutaneous Endoscopic Approach (ICD-10-PCS; 2019-08-01)
PROC: 0PBL0ZZ Excision of Left Ulna, Open Approach (ICD-10-PCS; 2019-08-01)
PROC: 0PHL04Z Insertion of Internal Fixation Device into Left Ulna, Open Approach (ICD-10-PCS; 2019-08-01)
PROC: 0RSV04Z Reposition Left Metacarpophalangeal Joint with Internal Fixation Device, Open Approach (ICD-10-PCS; 2019-08-01)
DX: M18.12 Unilateral primary osteoarthritis of first carpometacarpal joint, left hand (principal); S63.592A Other specified sprain of left wrist, initial encounter; M19.042 Primary osteoarthritis, left hand; S63.115A Dislocation of metacarpophalangeal joint of left thumb, initial encounter; M65.88 Other synovitis and tenosynovitis, other site; M25.832 Other specified joint disorders, left wrist; M1A.9XX1 Chronic gout, unspecified, with tophus (tophi); K21.9 Gastro-esophageal reflux disease without esophagitis; E11.9 Type 2 diabetes mellitus without complications; E78.00 Pure hypercholesterolemia, unspecified; I11.9 Hypertensive heart disease without heart failure; J44.9 Chronic obstructive pulmonary disease, unspecified; Z79.82 Long term (current) use of aspirin; Z79.899 Other long term (current) drug therapy; Z88.0 Allergy status to penicillin; Z95.5 Presence of coronary angioplasty implant and graft
CPT/HCPCS: 25312; 25390; 25447; 26516; 26715; 29846; 73090; 73130; 76000; 80202 ×2; 88305; 89060; 96365; 96366; 96375 ×2; 96376; A4306; C1713 ×2; G0378 ×3; 36415; J0171; J2001; J2250; J2370; J2405; J2704; J2795; J3010; J3370; J3490; J7050; S0020